=== PATIENT | female | born 1960 | race African-American/Black ===

== ENCOUNTER 2016-08-26 08:24 | Inpatient (IN) ==
[2016-08-26] MEDS ORDERED: PANTOPRAZOLE 40 MG VIAL IV STA (09:01)
[2016-08-26] MEDS ORDERED: SODIUM CHLORIDE 0.9% 1,000 ML IV STA (09:01)
[2016-08-26] MEDS ORDERED: ONDANSETRON 4 MG/2 ML VIAL IV STA (09:01)
[2016-08-26] MEDS ORDERED: METOCLOPRAMIDE 10 MG/2 ML VIAL IV STA (09:01)
--- NOTE | 2016-08-26 09:05 | Emergency Department Note ---
Arrival - Arrival Chief Complaint: Nausea/Vomiting/Diarrhea Stated Complaint: not feeling well/weakness/vomiting ED Nursing Triage Note: Nausea and vomiting x 1 week - pt states that she is having some generalized weakness Mode of Arrival: Wheelchair Limitations: No Limitations Source: Patient Time Seen by Provider: 08/26/16 09:00 - History of Present Illness HPI Narrative: This 56-year-old black female presents with one-week of persistent nausea, loose bowel movements, and intermittent vomiting. This has been associated with midepigastric tenderness, heartburn, belching, and water brash. The patient per the family has been told in the past that she may have an ulcer or gallbladder problems. The patient denies chills, fever, dysuria, urgency, frequency, hematuria, and vaginal discharge. Currently the patient is somewhat detached in the interview with much of the information from family members. The patient does have schizophrenia and did not take her Haldol today. She does not appear in any acute medical distress at this moment. Onset (ago): week(s) (Patient presents 1 week post onset of symptoms) Date of Last Menstrual Period: kenroy Allergies/Adverse Reactions: Allergies Allergy/AdvReac Type Severity Reaction Status Date / Time No Known Allergies Allergy Unverified 05/11/16 12:23 Home Medications: Home Medications Medication Instructions Recorded Confirmed Type Amlodipine Besylate 5 mg PO DAILY 05/11/16 05/11/16 History Haloperidol 5 mg PO BID 05/11/16 05/11/16 History Lisinopril 20 mg PO DAILY 05/11/16 05/11/16 History Metformin HCl 1,000 mg PO BID 05/11/16 05/11/16 History Ondansetron Tab [Zofran Tab] 4 mg PO Q6H #20 tablet 05/11/16 Rx Pravastatin Sodium 40 mg PO BEDTIME 05/11/16 05/11/16 History Promethazine Tab [Phenergan Tab] 25 mg PO Q6H PRN #20 tablet 05/11/16 Rx Meloxicam [Mobic] 15 mg PO DAILY #60 tablet 05/14/16 Rx Review of System - Review of System 12 point system: reviewed and no additional remarkable complaints except as stated - Review of System Constitutional: Present: as per HPI Gastrointestinal: Present: as per HPI Medical,Surgical,& Family Hx - Medical History Cardio: History of: Hypertension Psychological: History of: Schizophrenia Endocrine: History of: Diabetes Mellitus (IDDM), Diabetes Mellitus (NIDDM), Dyslipidemia - Social History Smoking Status: Unknown if ever smoked Frequency of Alcohol Use: None Type of Drug Use: None Exam Physical Examination: GENERAL: Well developed, well nourished black female in no acute distress. HEENT: Normocephalic. No trauma. Moist mucous membranes. EOMI. PERRLA. ENT NML NECK: Supple. No adenopathy. CARDIAC: Regular. No murmurs. Heart rate 82 CHEST: Clear to auscultation. No respiratory distress. O2 sat 98% ABDOMEN: Soft. Tender mid epigastrium. Active bowel sounds. EXTREMITIES: No trauma. Normal ROM. No pedal edema. SKIN: No diaphoresis. No rash. NEURO: Alert. Oriented 3 but glazed affect consistent with schizoaffective disease. Motor, sensory, vibratory intact. No focal deficits. Vital Signs: Vital Signs Temperature 97.2 F L 08/26/16 08:41 Pulse Rate 77 08/26/16 09:50 Respiratory Rate 16 08/26/16 09:50 Blood Pressure 128/71 08/26/16 09:50 O2 Sat by Pulse Oximetry 100 08/26/16 09:50 Course - Reevaluation(s) Reevaluation #1: Advised patient she would need hospitalization for acute renal dysfunction. - Consultations Consultation #1: Discussed with hospitalist service will admit for further evaluation treatment. Results - Labs CBC & BMP: 08/26/16 09:44 08/26/16 09:44 Labs: I have reviewed the lab and noted the abnormal renal function, hypokalemia, and hyperbilirubinemia. - Diagnostic Findings Procedure: Abdominal x-ray: image reviewed by me, report reviewed by me (No acute disease, 35 mm fibroid tumor) Disposition Clinical Impression: Acute renal failure, Hypokalemia, Hyperbilirubinemia Case discussed with: patient Disposition: Still a Patient Condition: Guarded Time of Disposition: 10:35
[2016-08-26] MEDS ORDERED: ONDANSETRON 4 MG/2 ML VIAL ONE (09:25)
[2016-08-26] MEDS ORDERED: PANTOPRAZOLE 40 MG VIAL IV ONE (09:25)
[2016-08-26] MEDS ORDERED: METOCLOPRAMIDE 10 MG/2 ML VIAL ONE (09:25)
--- NOTE | 2016-08-26 09:38 | XRay Report ---
Exam: XR abdomen 2V Date: 08/26/2016 9:01 AM Comparison: None Indication: Generalized abdominal pain Technique:[Supine abdomen] Findings: Nonobstructed bowel gas pattern. 35mm calcified uterine leiomyoma. Minimal degenerative changes. Impression: Nonobstructed bowel gas pattern. 35 mm calcified uterine leiomyoma. PROCEDURE INTERPRETED AT [facility] DEPARTMENT OF RADIOLOGY Final Report Signed by: Dr. Carly Reddy
[2016-08-26 09:55] LABS: Basophils % 0.3 % (0.0-0.8); Eosinophils # 0.2 10*3/uL (0.0-0.87); Eosinophils % 1.7 % (0.00-10.9); Hemoglobin 13.5 GM/DL (12.0-16.0); Immature Granulocytes % 0.4 %; Immature Granulocytes Absolute 0.04 #; Lymphocytes % 33.6 % (21.3-54.2); Mean Corpuscular HGB Conc 35.5 GM/DL (32-36); Mean Corpuscular Hemoglobin 27 PG (27-34); Mean Corpuscular Volume 76.6 FL (87-102); Mean Platelet Volume 10.3 FL (9.6-12.0); Monocytes # 0.7 10*3/uL (0.11-0.8); Monocytes % 7.4 % (1.7-12.7); Neutrophils # 5.1 10*3/uL (1.4-7.4); Neutrophils % 56.6 % (38.7-73.9); Red Blood Count 4.96 MC/CUMM (3.8-5.5); Red Cell Distribution Width 12.7 % (9.3-17.3)
[2016-08-26 09:57] LABS: Platelet Count 312 T/CUMM (130-400)
[2016-08-26 10:13] LABS: Albumin 3.9 G/DL (3.4-5.0); Bilirubin,Total 3.2 MG/DL (0.2-1.0); Calcium 9.4 MG/DL (8.5-10.1); Osmolality,Calculated 275.4 MOS/KG (273-304); Total Protein 7.5 G/DL (6.4-8.3)
[2016-08-26 10:49] LABS: Hypochromasia 1+
[2016-08-26 10:50] LABS: Platelet Estimate Adequate
[2016-08-26 11:07] LABS: Apearance,Urine CLOUDY (Clear); Bacteria,Urine Few /HPF (Few); Bilirubin,Urine Negative (Negative); Blood, Urine Negative (Negative); Glucose,Urine (UA) Negative (Negative); Ketones,Urine Negative (Negative); Mucus,Urine Occasional /LPF (Occasional); Nitrite,Urine Negative (Negative); Protein,Urine Negative; RBC,Urine 2 /HPF (0-4); Squamous Epithelial Cell,Urine Occasional /HPF (0-10); Urine Color Yellow (Yellow); Urine Specific Gravity 1.009 (1.001-1.035); Urine Urobilinogen < 2.0 EU/DL (0.2-1.0); WBC,Urine 7 /HPF (0-6)
--- NOTE | 2016-08-26 11:43 | Hospitalist History & Physical ---
Assessment and Plan (1) Acute kidney failure Status: Acute Assessment and plan: BUN 65 creatinine 4.1. This is a notable increase from last admission in May 2016 (creatinine 1.3). Gentle IV hydration. Consult nephrology. Current Visit: Yes (2) Hypertension Status: Acute Assessment and plan: Continue home medications. Current Visit: Yes (3) Diabetes mellitus Status: Acute Assessment and plan: Hold metformin. Accu-Cheks ACHS. Sliding scale insulin per protocol Current Visit: Yes (4) Hyponatremia Status: Acute Assessment and plan: Cautious replacement. Current Visit: Yes (5) Hypokalemia Status: Acute Assessment and plan: Potassium supplementation. Current Visit: Yes (6) Schizophrenia Status: Acute Assessment and plan: Patient takes Haldol at home. Continue home meds. Current Visit: Yes History of Present Illness Chief complaint: Generalized weakness, N/V/D History of present illness: Ms. Whitt is a 56 year old -[place] female with patient with a past medical history schizophrenia, hypertension, diabetes mellitus, gastroparesis, hyperlipidemia who presents to the emergency room with complaints of generalized weakness, diarrhea and intermittent vomiting 1 week. At the time of exam, the patient was in the room alone, alert and oriented 2. She was noticeably is detached and is a poor historian (per hospital records, the patient does take Haldol daily). Apparently her son was present previously, however he had left at the time of my exam. The patient did tell me that she was on disability due to "something to do with my brain" and that she currently lives with her son. She reports that she has been nauseous with vomiting and diarrhea for one week and had an apparent syncopal episode this morning while getting ready to bathe. She tells me that her son found her on the floor and brought her to the ER for further evaluation. On exam, the patient admits a headache and blurry vision but otherwise denies any pain. She further denies, chest pain, shortness of breath, current nausea or vomiting, melena, bright red blood per rectum, or edema. Her labs are remarkable for: Sodium 126, potassium 3.0, chloride of 76, BUN 65, creatinine 4.1, blood glucose 168. Abdominal x- ray reveals nonobstructive bowel gas pattern and a 35 mm calcified uterine leiomyoma. Patient notes that she has not taken any of her medications this morning because she "did not feel up to it". She is followed by Dr. Marc Echeverria in [place]. This case has been discussed with Dr. Pascual and the patient will be admitted to the hospital medicine service for further evaluation and treatment. Patient is a full code. Home medications have been reviewed and reconciled. Home Medications Medication Instructions Recorded Confirmed Type Amlodipine Besylate 5 mg PO DAILY 05/11/16 08/26/16 History Haloperidol 5 mg PO BID 05/11/16 08/26/16 History Lisinopril 20 mg PO DAILY 05/11/16 08/26/16 History Metformin HCl 1,000 mg PO BID 05/11/16 08/26/16 History Pravastatin Sodium 40 mg PO BEDTIME 05/11/16 08/26/16 History Allergies Allergy/AdvReac Type Severity Reaction Status Date / Time No Known Allergies Allergy Unverified 05/11/16 12:23 Medical,Surgical,& Family Hx - Medical History Cardio: History of: Hypertension Psychological: History of: Schizophrenia Endocrine: History of: Diabetes Mellitus (IDDM), Diabetes Mellitus (NIDDM), Dyslipidemia - Family History Family History: Reports;: Family Cancer, Family Heart Disease, Family Hypertension - Social History Smoking Status: Never smoker Frequency of Alcohol Use: None Type of Drug Use: None Marital Status: Single Lives With:: Children Functional capacity: independent ambulation - Constitutional Constitutional: Present: frequent falls, headache(s), weakness - EENT Eyes: Present: blurry vision. Absent: loss of vision Ears: Absent: decreased hearing, ear pain Nose, mouth and throat: Present: headache(s). Absent: nasal congestion, sinus pressure, sore throat, vertigo - Cardiovascular Cardiovascular: Absent: chest pain at rest, diaphoresis, dyspnea, dyspnea on exertion, edema, radiating jaw, neck or arm pain, palpitations - Respiratory Respiratory: Absent: cough, dyspnea, dyspnea on exertion, wheezing, pain on inspiration - Gastrointestinal Gastrointestinal: Present: change in bowel habits, diarrhea, loose stools, vomiting. Absent: abdominal pain, constipation, melena, nausea - Genitourinary Genitourinary: Absent: difficulty urinating, dysuria, hematuria, vaginal discharge - Musculoskeletal Musculoskeletal: Absent: back pain - Psychiatric Psychiatric: Present: confusion, other (hx of schizophrenia). Absent: anxiety, depression - Endocrine Endocrine: Absent: cold intolerance, fatigue, heat intolerance - Hematologic/Lymphatic Hematologic/Lymphatic: Absent: easy bleeding, easy bruising Exam - Constitutional Vitals: Period Temp Pulse Resp BP Sys/Lainez Pulse Ox Last 24 Hr 97.2 F-97.2 F 74-83 16-20 98-140/60-90 96-100 General appearance: no acute distress, over weight - Head Head exam: Present: normal inspection, normocephalic, atraumatic - Eye Eye exam: Present: EOMI Pupils: Present: RAE - ENT ENT exam: Present: normal exam, normal external ear exam - Neck Neck exam: Absent: lymphadenopathy, thyromegaly - Respiratory Respiratory exam: Present: clear to auscultation bilaterally. Absent: rales, rhonchi, wheezes - Cardiovascular Cardiovascular exam: Present: regular rate and rhythm. Absent: bradycardia, carotid bruit, gallop, rubs - GI/Abdominal GI/Abdominal exam: Present: normal bowel sounds, soft. Absent: mass, tenderness , rebound - Back Exam Back exam: Present: normal inspection. Absent: CVA tenderness (L), CVA tenderness (R) - Neurological Exam Neurological exam: Present: alert, CN II-XII intact, reflexes normal - Psychiatric Psychiatric exam: Present: normal affect, normal mood - Skin Skin exam: Present: normal color, warm, dry Results - Labs CBC & BMP: 08/26/16 09:44 08/26/16 09:44 Lab Results: I have reviewed the past 24 hour labs - Diagnostic Findings Procedure: Abdominal x-ray: image reviewed by me, report reviewed by me ( Nonobstructive bowel gas pattern)
[2016-08-26] MEDS ORDERED: DEXTROSE 50% 25 GM/50 ML VIAL IV PRN (12:44)
[2016-08-26] MEDS ORDERED: GLUCAGON 1 MG VIAL IM PRN (12:44)
[2016-08-26] MEDS: metroNIDAZOLE INJ 500 MG in PREMIX 1 EACH IV SCH ×2 (13:46→21:12)
[2016-08-26] MEDS: CIPROFLOXACIN INJ 400 MG in PREMIX 1 EACH IV SCH (15:35)
[2016-08-26] MEDS: INSULIN LISPRO 100 UNIT/ML SUBCUT SCH ×2 (17:08→21:15)
[2016-08-26] MEDS: HALOPERIDOL 5 MG TABLET PO SCH (21:10)
[2016-08-26] MEDS: PRAVASTATIN 40 MG TABLET PO SCH (21:10)
[2016-08-27] MEDS: metroNIDAZOLE INJ 500 MG in PREMIX 1 EACH IV SCH ×3 (06:33→22:13)
[2016-08-27] MEDS: HALOPERIDOL 5 MG TABLET PO SCH ×2 (09:28→22:07)
[2016-08-27] MEDS: INSULIN LISPRO 100 UNIT/ML SUBCUT SCH ×4 (09:28→22:06)
[2016-08-27] MEDS: CIPROFLOXACIN INJ 400 MG in PREMIX 1 EACH IV SCH (09:28)
--- NOTE | 2016-08-27 11:36 | Hospitalist Progress Note ---
Assessment and Plan - Time spent with patient Time spent with patient: Greater than 30 minutes (1) Acute kidney failure Status: Acute Assessment and plan: Obtain labs. Current Visit: Yes (2) Diabetes mellitus Status: Acute Assessment and plan: Continue current management. Current Visit: Yes (3) Hypertension Status: Acute Assessment and plan: Continue current management. Current Visit: Yes (4) Hypokalemia Status: Acute Assessment and plan: Reobtain labs. Current Visit: Yes (5) Hyponatremia Status: Acute Assessment and plan: Reobtain labs. Current Visit: Yes (6) Schizophrenia Status: Acute Assessment and plan: Continue current management. Current Visit: Yes Hospitalist: Subjective Interval history: No complaints or overnight events. Exam - Constitutional Vitals: Period Temp Pulse Resp BP Sys/Lainez Pulse Ox Last 24 Hr 97.4 F-99.4 F 73-88 14-19 120-163/63-78 95-100 General appearance: no acute distress - Head Head exam: Present: normocephalic, atraumatic - Eye Eye exam: Present: EOMI Pupils: Present: RAE - ENT ENT exam: Present: normal exam - Neck Neck exam: Present: normal inspection - Respiratory Respiratory exam: Present: clear to auscultation bilaterally. Absent: rhonchi, wheezes - Cardiovascular Cardiovascular exam: Present: regular rate and rhythm. Absent: gallop, rubs, systolic murmur - GI/Abdominal GI/Abdominal exam: Present: normal bowel sounds, soft. Absent: distended, firm , guarding, tenderness, rebound - Extremities Exam Extremities exam: Present: normal inspection. Absent: calf tenderness, edema Results - Labs CBC & BMP: 08/26/16 09:44 08/26/16 09:44 Lab Results: I have reviewed the past 24 hour labs
[2016-08-27 12:05] LABS: Calcium 9.6 MG/DL (8.5-10.1); Osmolality,Calculated 280.5 MOS/KG (273-304); Potassium 3.1 MMOL/L (3.5-5.1)
[2016-08-27] MEDS ORDERED: POTASSIUM CHLORIDE 20 MEQ PACK PO ONE (12:35)
[2016-08-27] MEDS: POTASSIUM CHLORIDE RIDER 10 MEQ in PREMIX 1 EACH IV SCH ×2 (13:57→15:16)
[2016-08-27] MEDS: PRAVASTATIN 40 MG TABLET PO SCH (22:07)
[2016-08-28] MEDS: CIPROFLOXACIN INJ 400 MG in PREMIX 1 EACH IV SCH (01:48)
[2016-08-28] MEDS: POTASSIUM CHLORIDE RIDER 10 MEQ in PREMIX 1 EACH IV SCH (01:49)
[2016-08-28 06:47] LABS: Basophils % 0.6 % (0.0-0.8); Eosinophils # 0.1 10*3/uL (0.0-0.87); Eosinophils % 1.5 % (0.00-10.9); Hematocrit 35.6 VOL% (35.7-47.0); Hemoglobin 12.1 GM/DL (12.0-16.0); Immature Granulocytes % 0.1 %; Immature Granulocytes Absolute 0.01 #; Lymphocytes % 56.5 % (21.3-54.2); Mean Corpuscular Hemoglobin 27 PG (27-34); Mean Corpuscular Volume 78.4 FL (87-102); Mean Platelet Volume 9.9 FL (9.6-12.0); Monocytes # 0.5 10*3/uL (0.11-0.8); Monocytes % 6.9 % (1.7-12.7); Neutrophils # 2.5 10*3/uL (1.4-7.4); Neutrophils % 34.4 % (38.7-73.9); Platelet Count 390 T/CUMM (130-400); Red Blood Count 4.54 MC/CUMM (3.8-5.5); Red Cell Distribution Width 12.9 % (9.3-17.3); White Blood Count 7.2 T/CUMM (4-12)
[2016-08-28] MEDS: metroNIDAZOLE INJ 500 MG in PREMIX 1 EACH IV SCH ×2 (06:57→13:29)
[2016-08-28 07:12] LABS: Eosinophils 2 % (0-10); Lymphocytes 62 % (20-55); Segmented Neutrophils 30 % (50-85); Total Cells Counted 100
[2016-08-28 07:13] LABS: Hypochromasia 1+; Microcytosis 1+; Ovalocytes Slight; Platelet Estimate Normal
[2016-08-28] MEDS: INSULIN LISPRO 100 UNIT/ML SUBCUT SCH ×2 (07:13→13:28)
[2016-08-28 07:23] LABS: Calcium 9.7 MG/DL (8.5-10.1); Osmolality,Calculated 274.1 MOS/KG (273-304); Potassium 3.4 MMOL/L (3.5-5.1)
[2016-08-28] MEDS ORDERED: POTASSIUM CHLORIDE 20 MEQ PACK PO ONE (09:00)
[2016-08-28] MEDS ORDERED: CIPROFLOXACIN INJ 400 MG in PREMIX 1 EACH IV SCH (09:00)
[2016-08-28] MEDS: HALOPERIDOL 5 MG TABLET PO SCH (10:25)
[2016-08-28 11:45] VITALS: BP 137/77
--- NOTE | 2016-08-28 12:52 | Discharge Summary ---
Hospital Course - Hospital Course Hospital Course: Ms. Whitt was admitted with nausea vomiting and diarrhea concerning for gastroenteritis. On admission her sodium level is 126, potassium 3.0 anion gap was 16 and creatinine was 4.1. Her electrolytes were replenished and by discharge had normalized. Her kidney function improved from 4.1-1.2 which is near baseline of 1.1. With regard to her gastroenteritis she was initiated on ciprofloxacin and metronidazole. She was found to have a urinary tract infection specifically due to E. coli. She will continue ciprofloxacin and metronidazole to cover both her gastroenteritis and UTI at discharge. Her nausea and vomiting had resolved during her hospital stay and her diet was advanced to regular diet which she tolerated. By discharge she had met maximum benefit of hospitalization. I spent 38 minutes coordinating this discharge. - Time spent with patient Time with patient DS: Greater than 30 minutes Diagnosis - Discharge Diagnosis (1) Acute kidney failure Status: Acute (2) Diabetes mellitus Status: Acute (3) Hypertension Status: Acute (4) Hypokalemia Status: Acute (5) Hyponatremia Status: Acute (6) Schizophrenia Status: Acute Discharge Plan - Discharge Data Disposition: Disch To Home/Self Care Condition at Discharge: Stable Discharge Diet: advance to your usual diet Activity: resume usual activities as tolerated - Discharge Medications New Ciprofloxacin HCl [Ciprofloxacin Tab] 500 mg PO BID #16 tablet metroNIDAZOLE TAB [Flagyl Cap/Tab] 500 mg PO TID #24 tablet Continue Haloperidol 5 mg PO BID Lisinopril 20 mg PO DAILY Pravastatin Sodium 40 mg PO BEDTIME Metformin HCl 1,000 mg PO BID Amlodipine Besylate 5 mg PO DAILY - Follow Up or Referral - Forms/Instructions Exam - Constitutional Vitals: Period Temp Pulse Resp BP Sys/Lainez Pulse Ox Last 24 Hr 97.8 F-99.5 F 76-81 16-18 127-154/73-82 91-99 General appearance: normal weight, no acute distress - Head Head exam: Present: normal inspection, normocephalic, atraumatic - Eye Eye exam: Present: EOMI Pupils: Present: RAE - ENT ENT exam: Present: normal exam - Neck Neck exam: Present: normal inspection - Respiratory Respiratory exam: Present: clear to auscultation bilaterally. Absent: accessory muscle use, prolonged expiratory phase, wheezes - Cardiovascular Cardiovascular exam: Present: regular rate and rhythm. Absent: bradycardia, irregular rhythm, systolic murmur - GI/Abdominal GI/Abdominal exam: Present: normal bowel sounds. Absent: ascites, distended, hypoactive bowel sounds, tenderness - Extremities Exam Extremities exam: Present: normal inspection Discharge Results Procedures and tests throughout hospitalization: Pending Orders 08/26/16 12:43 C. Diff Toxins A & B Routine Stool Culture Routine Stool for WBCs Routine Labs on day of discharge: Labs from last 24 hours 08/28/16 08/28/16 08/28/16 11:22 06:48 05:40 WBC RBC Hgb Hct MCV MCH MCHC RDW Plt Count MPV Neut % (Auto) Lymph % (Auto) [place] % (Auto) Eos % (Auto) Baso % (Auto) Neut # (Auto) Lymph # (Auto) [place] # (Auto) Eos # (Auto) Baso # (Auto) Total Counted Immature Gran % Nucleated RBC % Immature Gran # Segmented Neutrophils Lymphocytes Monocytes Eosinophils Nucleated RBCs # Platelet Estimate Hypochromasia Microcytosis Ovalocytes Morphology Comment Sodium 135 L Potassium 3.4 L Chloride 89 L Carbon Dioxide 38 H Anion Gap 11.4 BUN 19 H D Creatinine 1.20 H GFR Calculation 60 BUN/Creatinine Ratio 15.00 Glucose 145 H POC Glucose 246 H 172 H Calculated Osmolality 274.1 Calcium 9.7 08/28/16 08/27/16 08/27/16 05:40 20:22 16:13 WBC 7.2 RBC 4.54 Hgb 12.1 Hct 35.6 L MCV 78.4 L MCH 27 MCHC 34.0 RDW 12.9 Plt Count 390 D MPV 9.9 Neut % (Auto) 34.4 L Lymph % (Auto) 56.5 H [place] % (Auto) 6.9 Eos % (Auto) 1.5 Baso % (Auto) 0.6 Neut # (Auto) 2.5 Lymph # (Auto) 4.0 [place] # (Auto) 0.5 Eos # (Auto) 0.1 Baso # (Auto) 0.0 Total Counted 100 Immature Gran % 0.1 Nucleated RBC % 0.0 Immature Gran # 0.01 Segmented Neutrophils 30 L Lymphocytes 62 H Monocytes 6 Eosinophils 2 Nucleated RBCs # 0.00 Platelet Estimate Normal Hypochromasia 1+ Microcytosis 1+ Ovalocytes Slight Morphology Comment Sodium Potassium Chloride Carbon Dioxide Anion Gap BUN Creatinine GFR Calculation BUN/Creatinine Ratio Glucose POC Glucose 236 H 89 Calculated Osmolality Calcium DS: Provider Date of admission: 08/26/16 10:38 Primary care physician: . No PCP Attending physician on admission: Josefina Pascual MD Consults: 08/26/16 12:21 Consult to Dietitian [CONS] Routine Reason for Dietitian: Dietary Consult Discharging clinician: Josefina Pascual MD Expected date of discharge: 08/28/16
== END 2016-08-28 14:04 | disposition home or self-care (01) | DRG 683 ==
LOC: N.ED 08:24 → N.EDINP 10:38 → N.3E 12:19
PROVIDERS: ADMIT Internal Medicine; ATTEND Internal Medicine

== ENCOUNTER 2018-02-09 20:41 | Inpatient (IN) ==
[2018-02-09] MEDS ORDERED: MORPHINE 4 MG/1 ML VIAL IV STA (21:22)
[2018-02-09] MEDS ORDERED: SODIUM CHLORIDE 0.9% 1,000 ML IV STA ×2 (21:22→23:06)
[2018-02-09] MEDS ORDERED: ONDANSETRON 4 MG/2 ML VIAL IM STA (21:22)
[2018-02-09 21:48] LABS: Basophils % 0.1 % (0.0-0.8); Hematocrit 40.1 VOL% (35.7-47.0); Hemoglobin 12.8 GM/DL (12.0-16.0); Immature Granulocytes % 0.5 %; Immature Granulocytes Absolute 0.08 #; Mean Corpuscular HGB Conc 31.9 GM/DL (32-36); Mean Corpuscular Hemoglobin 26 PG (27-34); Mean Corpuscular Volume 81.7 FL (87-102); Monocytes # 0.2 10*3/uL (0.11-0.8); Monocytes % 1.3 % (1.7-12.7); Neutrophils # 13.5 10*3/uL (1.4-7.4); Neutrophils % 91.1 % (38.7-73.9); Platelet Count 437 T/CUMM (130-400); Red Blood Count 4.91 MC/CUMM (3.8-5.5); Red Cell Distribution Width 14.5 % (9.3-17.3); White Blood Count 14.8 T/CUMM (4-12)
[2018-02-09 22:28] LABS: Alanine Aminotransferase 30 U/L (13-56); Albumin 4.4 G/DL (3.4-5.0); Alkaline Phosphatase 155 U/L (45-117); Aspartate Amino Transferase 31 U/L (0-37); Blood Urea Nitrogen 29 MG/DL (7-18); Calcium 10.2 MG/DL (8.5-10.1); Glucose 428 MG/DL (74-106); Osmolality,Calculated 293.1 MOS/KG (273-304); Potassium 4.6 MMOL/L (3.5-5.1); Sodium 135 MMOL/L (136-145); Total Protein 9.9 G/DL (6.4-8.3)
[2018-02-09 22:42] LABS: Apearance,Urine Slightly Hazy (Clear); Bacteria,Urine Many /HPF (Few); Bilirubin,Urine Negative (Negative); Blood, Urine Moderate mg/dL (Negative); Glucose,Urine (UA) >=500 mg/dL (Negative); Ketones,Urine 20 mg/dL (Negative); Mucus,Urine Occasional /LPF (Occasional); Nitrite,Urine Negative (Negative); Protein,Urine 100 MG/DL; Squamous Epithelial Cell,Urine Occasional /HPF (0-10); Urine Color Yellow (Yellow); Urine Specific Gravity 1.022 (1.001-1.035); Urine Urobilinogen < 2.0 EU/DL (0.2-1.0); WBC,Urine 7 /HPF (0-6)
[2018-02-09 22:44] LABS: Lactic Acid 4.6 MMOL/L (0.4-2.0)
[2018-02-09] MEDS ORDERED: INSULIN REGULAR DRIP 100 ML IV PRN (23:06)
[2018-02-10] MEDS ORDERED: MAGNESIUM SULF RIDER 2 GM in PREMIX 1 EACH IV PRN (00:46)
[2018-02-10] MEDS ORDERED: INSULIN REGULAR DRIP 100 ML IV SCH (00:46)
[2018-02-10] MEDS ORDERED: SODIUM PHOSPHATE INJ 20.2 MMOL in SODIUM CHLORIDE 0.9% 250 ML IV PRN (00:46)
[2018-02-10] MEDS ORDERED: DEXTROSE 50% 25 GM/50 ML SYRINGE IV PRN ×2 (00:46)
[2018-02-10] MEDS ORDERED: SODIUM BICARB INJ 100 MEQ in STERILE WATER INJ 400 ML IV PRN (00:46)
[2018-02-10] MEDS ORDERED: SODIUM CHLORIDE 0.9% 1,000 ML IV ONE (00:46)
[2018-02-10] MEDS ORDERED: POTASSIUM CHLORIDE RIDER 10 MEQ in PREMIX 1 EACH IV PRN (00:46)
[2018-02-10] MEDS ORDERED: MAGNESIUM SULF RIDER 4 GM in PREMIX 1 EACH IV PRN (00:46)
[2018-02-10] MEDS ORDERED: ONDANSETRON 4 MG/2 ML VIAL IV PRN (01:08)
[2018-02-10 01:36] LABS: Osmolality,Calculated 290.2 MOS/KG (273-304); Potassium 5.3 MMOL/L (3.5-5.1)
[2018-02-10] MEDS: cefTRIAXone 1,000 MG in SYRINGE 1 EACH IV SCH (01:37)
[2018-02-10] MEDS: SODIUM CHLORIDE 0.9% 1,000 ML IV SCH ×2 (02:00→04:03)
[2018-02-10 02:44] LABS: Basophils % 0.2 % (0.0-0.8); Hematocrit 35.2 VOL% (35.7-47.0); Hemoglobin 11.2 GM/DL (12.0-16.0); Immature Granulocytes % 0.4 %; Immature Granulocytes Absolute 0.05 #; Lymphocytes # 1.1 10*3/uL (1.4-4.0); Mean Corpuscular HGB Conc 31.8 GM/DL (32-36); Mean Corpuscular Hemoglobin 26 PG (27-34); Mean Corpuscular Volume 81.3 FL (87-102); Mean Platelet Volume 9.9 FL (9.6-12.0); Monocytes # 0.3 10*3/uL (0.11-0.8); Monocytes % 2.1 % (1.7-12.7); Neutrophils # 11.7 10*3/uL (1.4-7.4); Neutrophils % 89.3 % (38.7-73.9); Platelet Count 386 T/CUMM (130-400); Red Blood Count 4.33 MC/CUMM (3.8-5.5); Red Cell Distribution Width 14.4 % (9.3-17.3); White Blood Count 13.1 T/CUMM (4-12)
[2018-02-10 03:16] LABS: Calcium 9.2 MG/DL (8.5-10.1); Osmolality,Calculated 292.5 MOS/KG (273-304); Potassium 3.9 MMOL/L (3.5-5.1)
[2018-02-10 03:21] LABS: Anisocytosis 1+; Platelet Estimate Adequate
[2018-02-10 03:33] LABS: Apearance,Urine Slightly Hazy (Clear); Bacteria,Urine Many /HPF (Few); Bilirubin,Urine Negative (Negative); Blood, Urine Moderate mg/dL (Negative); Glucose,Urine (UA) >=500 mg/dL (Negative); Ketones,Urine 20 mg/dL (Negative); Mucus,Urine Occasional /LPF (Occasional); Nitrite,Urine Negative (Negative); Protein,Urine 100 MG/DL; RBC,Urine 7 /HPF (0-4); Squamous Epithelial Cell,Urine Occasional /HPF (0-10); Urine Color Yellow (Yellow); Urine Specific Gravity 1.021 (1.001-1.035); Urine Urobilinogen < 2.0 EU/DL (0.2-1.0); WBC,Urine 3 /HPF (0-6)
[2018-02-10] MEDS ORDERED: SODIUM CHLORIDE 0.9% 1,000 ML IV SCH (05:12)
[2018-02-10] MEDS ORDERED: DEXTROSE 5% NACL 0.9% 1,000 ML IV SCH ×2 (05:30→06:30)
[2018-02-10 08:45] LABS: Calcium 8.3 MG/DL (8.5-10.1); Potassium 3.9 MMOL/L (3.5-5.1)
[2018-02-10] MEDS: amLODIPine 5 MG TABLET PO SCH (09:26)
[2018-02-10] MEDS: ENOXAPARIN 40 MG/0.4 ML SYRINGE SUBCUT SCH (09:26)
[2018-02-10] MEDS ORDERED: DEXTROSE 50% 25 GM/50 ML VIAL IV PRN (10:41)
[2018-02-10] MEDS ORDERED: GLUCAGON 1 MG VIAL IM PRN (10:41)
[2018-02-10] MEDS: INSULIN LISPRO 100 UNIT/ML SUBCUT SCH ×3 (12:52→22:49)
[2018-02-10] MEDS: SODIUM CHLORIDE 0.45% 1,000 ML IV SCH ×2 (12:53→21:09)
[2018-02-10] MEDS ORDERED: glyBURIDE 2.5 MG TABLET PO ONE (16:33)
[2018-02-10 19:44] LABS: Lactic Acid 2.8 MMOL/L (0.4-2.0)
[2018-02-10] MEDS ORDERED: PRAVASTATIN 40 MG TABLET PO SCH (21:00)
[2018-02-10] MEDS: HALOPERIDOL 5 MG TABLET PO SCH (22:48)
[2018-02-11] MEDS: cefTRIAXone 1,000 MG in SYRINGE 1 EACH IV SCH (00:40)
[2018-02-11] MEDS: SODIUM CHLORIDE 0.9% 1,000 ML IV SCH (03:03)
[2018-02-11] MEDS: SODIUM CHLORIDE 0.45% 1,000 ML IV SCH (03:52)
[2018-02-11 07:42] VITALS: BP 158/87
[2018-02-11] MEDS ORDERED: glyBURIDE 2.5 MG TABLET PO SCH (08:00)
[2018-02-11] MEDS: INSULIN LISPRO 100 UNIT/ML SUBCUT SCH ×2 (08:18→11:34)
[2018-02-11 08:44] LABS: Bilirubin,Total 1.1 MG/DL (0.2-1.0); Calcium 8.1 MG/DL (8.5-10.1); Osmolality,Calculated 282.3 MOS/KG (273-304); Potassium 3.7 MMOL/L (3.5-5.1); Total Protein 7.4 G/DL (6.4-8.3)
[2018-02-11] MEDS: amLODIPine 5 MG TABLET PO SCH (08:54)
[2018-02-11] MEDS: HALOPERIDOL 5 MG TABLET PO SCH (08:54)
[2018-02-11] MEDS: ENOXAPARIN 40 MG/0.4 ML SYRINGE SUBCUT SCH (08:55)
== END 2018-02-11 12:21 | disposition home or self-care (01) | DRG 683 ==
LOC: N.ED 20:41 → SUATTDRO 23:53 → N.EDINP 23:53 → N.ICU 02-10 00:39 → N.5E 02-11 01:04
PROVIDERS: ADMIT Family Medicine; ATTEND Internal Medicine

== ENCOUNTER 2019-01-06 23:41 | Inpatient (IN) ==
[2019-01-06] MEDS ORDERED: hydrALAZINE 20 MG/1 ML VIAL IV STA (23:58)
[2019-01-06] MEDS ORDERED: SODIUM CHLORIDE 0.9% 500 ML IV STA (23:58)
[2019-01-06] MEDS ORDERED: ONDANSETRON 4 MG/2 ML VIAL IV STA (23:58)
[2019-01-06] MEDS ORDERED: PANTOPRAZOLE 40 MG VIAL IV STA (23:58)
[2019-01-07 00:57] LABS: Apearance,Urine Slightly Hazy (Clear); Bacteria,Urine Many /HPF (Few); Bilirubin,Urine Negative (Negative); Blood, Urine Moderate mg/dL (Negative); Glucose,Urine (UA) >=500 mg/dL (Negative); Ketones,Urine 20 mg/dL (Negative); Mucus,Urine Occasional /LPF (Occasional); Nitrite,Urine Negative (Negative); Protein,Urine 100 MG/DL; RBC,Urine 5 /HPF (0-4); Squamous Epithelial Cell,Urine Occasional /HPF (0-10); Urine Color Red (Yellow); Urine Specific Gravity 1.026 (1.001-1.035); Urine Urobilinogen < 2.0 EU/DL (0.2-1.0); WBC,Urine 2 /HPF (0-6)
[2019-01-07 00:58] LABS: Basophils % 0.2 % (0.0-0.8); Hematocrit 41.1 VOL% (35.7-47.0); Hemoglobin 13.1 GM/DL (12.0-16.0); Immature Granulocytes % 0.4 %; Immature Granulocytes Absolute 0.05 #; Lymphocytes # 1.3 10*3/uL (1.4-4.0); Lymphocytes % 9.4 % (21.3-54.2); Mean Corpuscular HGB Conc 31.9 GM/DL (32-36); Mean Corpuscular Volume 81.1 FL (87-102); Mean Platelet Volume 10.1 FL (9.6-12.0); Platelet Count 476 T/CUMM (130-400); Red Blood Count 5.07 MC/CUMM (3.8-5.5); Red Cell Distribution Width 13.9 % (9.3-17.3); White Blood Count 13.5 T/CUMM (4-12)
[2019-01-07 01:14] LABS: Alanine Aminotransferase 20 U/L (13-56); Albumin 4.5 G/DL (3.4-5.0); Alkaline Phosphatase 147 U/L (45-117); Amylase 48 U/L (25-115); Aspartate Amino Transferase 8 U/L (0-37); Blood Urea Nitrogen 20 MG/DL (7-18); Calcium 10.3 MG/DL (8.5-10.1); Estimated Glom Filtration Rate 38 ML/MIN; Osmolality,Calculated 304.8 MOS/KG (273-304); Total Protein 9.6 G/DL (6.4-8.3)
[2019-01-07 01:16] LABS: Glucose 619 MG/DL (74-106)
[2019-01-07] MEDS ORDERED: METOCLOPRAMIDE 10 MG/2 ML VIAL IV STA (01:17)
[2019-01-07] MEDS ORDERED: INSULIN REGULAR 100 UNIT/ML IV STA (01:17)
[2019-01-07] MEDS ORDERED: SODIUM CHLORIDE 0.9% 2,450 ML IV ONE (01:19)
[2019-01-07] MEDS ORDERED: PIPERACILLIN/TAZOBACTAM 3,375 MG VIAL IV ONE (01:23)
[2019-01-07] MEDS ORDERED: hydrALAZINE 20 MG/1 ML VIAL IV STA ×2 (01:33→01:39)
[2019-01-07] MEDS: PIPERACILLIN/TAZOBACTAM 3,375 MG in SODIUM CHLORIDE 0.9% 100 ML IV SCH ×3 (01:37→17:43)
[2019-01-07] MEDS ORDERED: PROMETHAZINE 25 MG/1 ML VIAL ONE (01:47)
[2019-01-07] MEDS ORDERED: PROMETHAZINE 25 MG/1 ML VIAL IM STA (01:48)
[2019-01-07] MEDS ORDERED: INSULIN REGULAR 100 UNIT/ML IV ONE (02:07)
[2019-01-07] MEDS ORDERED: PROMETHAZINE 25 MG/1 ML VIAL IM PRN (02:42)
[2019-01-07] MEDS ORDERED: GLUCAGON 1 MG VIAL IM PRN (02:48)
[2019-01-07] MEDS ORDERED: DEXTROSE 50% 25 GM/50 ML VIAL IV PRN (02:48)
[2019-01-07] MEDS: INSULIN REGULAR 100 UNIT/ML SUBCUT SCH ×5 (04:05→21:23)
[2019-01-07] MEDS: LABETALOL 20 MG/4 ML SYRINGE IV PRN (04:45)
[2019-01-07] MEDS ORDERED: PROMETHAZINE INJ 25 MG, diphenhydrAMINE INJ 50 MG in SODIUM CHLORIDE 0.9% 1,000 ML IV SCH (05:00)
[2019-01-07 05:52] LABS: Basophils % 0.2 % (0.0-0.8); Hematocrit 36.8 VOL% (35.7-47.0); Hemoglobin 11.7 GM/DL (12.0-16.0); Immature Granulocytes % 0.5 %; Immature Granulocytes Absolute 0.07 #; Lymphocytes # 0.8 10*3/uL (1.4-4.0); Lymphocytes % 5.7 % (21.3-54.2); Mean Corpuscular HGB Conc 31.8 GM/DL (32-36); Mean Corpuscular Volume 81.4 FL (87-102); Mean Platelet Volume 9.7 FL (9.6-12.0); Monocytes % 2.6 % (1.7-12.7); Platelet Count 409 T/CUMM (130-400); Red Blood Count 4.52 MC/CUMM (3.8-5.5); Red Cell Distribution Width 14.2 % (9.3-17.3); White Blood Count 13.2 T/CUMM (4-12)
[2019-01-07 06:19] LABS: Albumin 3.9 G/DL (3.4-5.0); Bilirubin,Total 1.7 MG/DL (0.2-1.0); Calcium 9.6 MG/DL (8.5-10.1); Osmolality,Calculated 299.3 MOS/KG (273-304); Total Protein 8.8 G/DL (6.4-8.3)
[2019-01-07 06:21] LABS: Lymphocytes 4 % (20-55); Platelet Estimate Increased; Segmented Neutrophils 95 % (50-85); Total Cells Counted 100
[2019-01-07] MEDS ORDERED: INSULIN REGULAR 100 UNIT/ML SUBCUT ONE (06:42)
[2019-01-07 06:53] LABS: VBG Base Excess -0.7 MEQ/L (0-4); VBG HCO3 23.6 MEQ/L (24-28); VBG Oxygen Saturation 84.7 %; VBG PCO2 39.3 MMHG (41-51); VBG PH 7.394; VBG PO2 50.2 MMHG (17-40)
[2019-01-07] MEDS: ONDANSETRON 4 MG/2 ML VIAL IV PRN (08:32)
[2019-01-07] MEDS: PANTOPRAZOLE 40 MG VIAL IV SCH ×2 (08:58→20:39)
[2019-01-07] MEDS: amLODIPine 5 MG TABLET PO SCH (08:59)
[2019-01-07] MEDS: LISINOPRIL 20 MG TABLET PO SCH (08:59)
[2019-01-07] MEDS: INSULIN GLARGINE 100 UNIT/ML SUBCUT SCH (09:00)
[2019-01-07] MEDS: ENOXAPARIN 40 MG/0.4 ML SYRINGE SUBCUT SCH (09:00)
[2019-01-07] MEDS ORDERED: PIPERACILLIN/TAZOBACTAM 3,375 MG in SODIUM CHLORIDE 0.9% 100 ML IV SCH (09:30)
[2019-01-07] MEDS: SODIUM CHLORIDE 0.9% 1,000 ML IV SCH ×2 (10:26→11:48)
[2019-01-08] MEDS: PIPERACILLIN/TAZOBACTAM 3,375 MG in SODIUM CHLORIDE 0.9% 100 ML IV SCH ×3 (02:25→17:07)
[2019-01-08] MEDS: SODIUM CHLORIDE 0.9% 1,000 ML IV SCH ×3 (04:29→12:46)
[2019-01-08 04:43] LABS: Basophils % 0.2 % (0.0-0.8); Eosinophils % 0.1 % (0.00-10.9); Hematocrit 38.2 VOL% (35.7-47.0); Hemoglobin 12.3 GM/DL (12.0-16.0); Immature Granulocytes % 0.4 %; Immature Granulocytes Absolute 0.05 #; Lymphocytes # 2.7 10*3/uL (1.4-4.0); Lymphocytes % 23.8 % (21.3-54.2); Mean Corpuscular HGB Conc 32.2 GM/DL (32-36); Monocytes % 5.6 % (1.7-12.7); Neutrophils % 69.9 % (38.7-73.9); Platelet Count 400 T/CUMM (130-400); Red Blood Count 4.66 MC/CUMM (3.8-5.5); Red Cell Distribution Width 14.4 % (9.3-17.3); White Blood Count 11.5 T/CUMM (4-12)
[2019-01-08] MEDS: LABETALOL 20 MG/4 ML SYRINGE IV PRN ×2 (04:43→22:43)
[2019-01-08 05:08] LABS: Calcium 9.6 MG/DL (8.5-10.1); Osmolality,Calculated 287.3 MOS/KG (273-304)
[2019-01-08] MEDS: INSULIN GLARGINE 100 UNIT/ML SUBCUT SCH (08:49)
[2019-01-08] MEDS: INSULIN REGULAR 100 UNIT/ML SUBCUT SCH ×4 (08:49→21:50)
[2019-01-08] MEDS: ENOXAPARIN 40 MG/0.4 ML SYRINGE SUBCUT SCH (08:49)
[2019-01-08] MEDS: amLODIPine 5 MG TABLET PO SCH (08:50)
[2019-01-08] MEDS: LISINOPRIL 20 MG TABLET PO SCH (08:50)
[2019-01-08] MEDS: PANTOPRAZOLE 40 MG VIAL IV SCH ×2 (08:50→21:50)
[2019-01-08] MEDS: ONDANSETRON 4 MG/2 ML VIAL IV PRN (12:56)
[2019-01-08] MEDS: POTASSIUM CHLORIDE 20 MEQ TABLET PO PRN (22:43)
[2019-01-09] MEDS: POTASSIUM CHLORIDE RIDER 10 MEQ in PREMIX 1 EACH IV PRN ×3 (00:16→06:27)
[2019-01-09] MEDS: SODIUM CHLORIDE 0.9% 1,000 ML IV SCH ×4 (01:24→20:30)
[2019-01-09] MEDS: PIPERACILLIN/TAZOBACTAM 3,375 MG in SODIUM CHLORIDE 0.9% 100 ML IV SCH ×3 (02:24→18:56)
[2019-01-09 05:49] LABS: Basophils % 0.4 % (0.0-0.8); Eosinophils % 0.2 % (0.00-10.9); Hematocrit 40.7 VOL% (35.7-47.0); Hemoglobin 13.2 GM/DL (12.0-16.0); Immature Granulocytes % 0.3 %; Immature Granulocytes Absolute 0.03 #; Lymphocytes # 2.8 10*3/uL (1.4-4.0); Lymphocytes % 30.2 % (21.3-54.2); Mean Corpuscular HGB Conc 32.4 GM/DL (32-36); Mean Corpuscular Volume 80.8 FL (87-102); Mean Platelet Volume 9.2 FL (9.6-12.0); Monocytes % 4.9 % (1.7-12.7); Platelet Count 397 T/CUMM (130-400); Red Blood Count 5.04 MC/CUMM (3.8-5.5); White Blood Count 9.3 T/CUMM (4-12)
[2019-01-09 06:05] LABS: Calcium 9.2 MG/DL (8.5-10.1); Osmolality,Calculated 275.1 MOS/KG (273-304)
[2019-01-09] MEDS ORDERED: LACTATED RINGERS 1,000 ML IV SCH (08:00)
[2019-01-09] MEDS: PANTOPRAZOLE 40 MG VIAL IV SCH ×2 (08:12→20:28)
[2019-01-09] MEDS: INSULIN GLARGINE 100 UNIT/ML SUBCUT SCH (08:12)
[2019-01-09] MEDS: INSULIN REGULAR 100 UNIT/ML SUBCUT SCH ×4 (08:12→20:28)
[2019-01-09] MEDS: LISINOPRIL 20 MG TABLET PO SCH (08:12)
[2019-01-09] MEDS: amLODIPine 5 MG TABLET PO SCH (08:12)
[2019-01-09] MEDS ORDERED: MAGNESIUM SULF RIDER 4 GM in PREMIX 1 EACH IV PRN (09:20)
[2019-01-09] MEDS ORDERED: MAGNESIUM SULF RIDER 2 GM in PREMIX 1 EACH IV PRN (09:20)
[2019-01-09] MEDS ORDERED: LIDOCAINE 100 MG/5 ML SYRINGE ONE (10:00)
[2019-01-09] MEDS ORDERED: PROPOFOL 200 MG/20 ML VIAL IV ONE (10:00)
[2019-01-09] MEDS ORDERED: ONDANSETRON 4 MG/2 ML VIAL ONE (10:32)
[2019-01-09] MEDS: ONDANSETRON 4 MG/2 ML VIAL IV PRN (10:35)
[2019-01-09] MEDS: POTASSIUM CHLORIDE 20 MEQ TABLET PO PRN (16:48)
[2019-01-10] MEDS: PIPERACILLIN/TAZOBACTAM 3,375 MG in SODIUM CHLORIDE 0.9% 100 ML IV SCH ×2 (00:57→09:25)
[2019-01-10] MEDS: POTASSIUM CHLORIDE 20 MEQ TABLET PO PRN ×2 (04:16→07:08)
[2019-01-10] MEDS: SODIUM CHLORIDE 0.9% 1,000 ML IV SCH ×2 (06:08→11:25)
[2019-01-10] MEDS: INSULIN REGULAR 100 UNIT/ML SUBCUT SCH ×2 (08:39→12:00)
[2019-01-10] MEDS: LISINOPRIL 20 MG TABLET PO SCH (09:20)
[2019-01-10] MEDS: INSULIN GLARGINE 100 UNIT/ML SUBCUT SCH (09:20)
[2019-01-10] MEDS: PANTOPRAZOLE 40 MG VIAL IV SCH (09:20)
[2019-01-10] MEDS: amLODIPine 5 MG TABLET PO SCH (09:20)
[2019-01-10 17:26] VITALS: BP 134/72
== END 2019-01-10 15:50 | disposition home or self-care (01) | DRG 872 ==
LOC: N.ED 23:41 → N.EDINP 01-07 02:42 → N.5E 01-07 03:27
PROVIDERS: ADMIT Internal Medicine; ATTEND Internal Medicine

== ENCOUNTER 2020-12-18 20:51 | Inpatient (IN) ==
[2020-12-18] MEDS ORDERED: PROCHLORPERAZINE 10 MG/2 ML VIAL IV PRN (21:26)
[2020-12-18 21:48] LABS: ABG Base Excess 4.6 MMOL/L (-2.5-2.5); ABG HCO3 28.6 MMOL/L (20-26); ABG Oxygen Saturation 98.5 % (95-100); ABG PH 7.507 (7.35-7.45); ABG PO2 91.8 MM HG (80-95); ABG TCO2 25.5 MMOL/L (23-27)
[2020-12-18 21:51] LABS: Basophils % 0.1 % (0.0-0.8); Hematocrit 29.9 VOL% (35.7-47.0); Hemoglobin 9.3 GM/DL (12.0-16.0); Immature Granulocytes % 0.4 %; Immature Granulocytes Absolute 0.03 #; Lymphocytes % 12.8 % (21.3-54.2); Mean Corpuscular HGB Conc 31.1 GM/DL (32-36); Mean Corpuscular Volume 80.6 FL (87-102); Mean Platelet Volume 9.2 FL (9.6-12.0); Monocytes % 3.7 % (1.7-12.7); Platelet Count 358 T/CUMM (130-400); Red Blood Count 3.71 MC/CUMM (3.8-5.5); Red Cell Distribution Width 15.5 % (9.3-17.3); White Blood Count 7.6 T/CUMM (4-12)
[2020-12-18 22:10] LABS: Albumin 3.1 G/DL (3.4-5.0); Bilirubin,Total 0.7 MG/DL (0.20-1.00); Calcium 9.1 MG/DL (8.5-10.1); Osmolality,Calculated 286.4 MOS/KG (273-304); Potassium 3.7 MMOL/L (3.5-5.1); Total Protein 8.7 G/DL (6.4-8.2)
[2020-12-18] MEDS ORDERED: LABETALOL 20 MG/4 ML SYRINGE IV STA (22:22)
[2020-12-19] MEDS ORDERED: hydrALAZINE 20 MG/1 ML VIAL IV STA (00:16)
[2020-12-19] MEDS ORDERED: GLUCAGON 1 MG VIAL IM PRN (00:21)
[2020-12-19] MEDS ORDERED: ONDANSETRON 4 MG/2 ML VIAL IV STA (00:21)
[2020-12-19] MEDS ORDERED: hydrALAZINE 20 MG/1 ML VIAL IV PRN (00:21)
[2020-12-19] MEDS ORDERED: ACETAMINOPHEN 325 MG TABLET PO PRN (00:21)
[2020-12-19] MEDS ORDERED: DEXTROSE 50% 25 GM/50 ML VIAL IV PRN (00:21)
[2020-12-19] MEDS ORDERED: DOCUSATE SODIUM 100 MG CAPSULE PO PRN (00:21)
[2020-12-19] MEDS: SODIUM CHLORIDE 0.9% 1,000 ML IV SCH ×2 (01:02→14:25)
[2020-12-19] MEDS: PROMETHAZINE 25 MG/1 ML VIAL IM PRN ×2 (03:18→20:30)
[2020-12-19 05:18] LABS: Basophils % 0.2 % (0.0-0.8); Hemoglobin 9.1 GM/DL (12.0-16.0); Immature Granulocytes % 0.2 %; Immature Granulocytes Absolute 0.02 #; Lymphocytes # 2.3 10*3/uL (1.4-4.0); Lymphocytes % 26.7 % (21.3-54.2); Mean Corpuscular HGB Conc 31.4 GM/DL (32-36); Mean Corpuscular Volume 79.9 FL (87-102); Mean Platelet Volume 9.9 FL (9.6-12.0); Monocytes % 7.5 % (1.7-12.7); Neutrophils % 65.4 % (38.7-73.9); Platelet Count 416 T/CUMM (130-400); Red Blood Count 3.63 MC/CUMM (3.8-5.5); Red Cell Distribution Width 15.7 % (9.3-17.3); White Blood Count 8.7 T/CUMM (4-12)
[2020-12-19 05:32] LABS: Albumin 3.1 G/DL (3.4-5.0); Bilirubin,Total 1.5 MG/DL (0.20-1.00); Calcium 9.8 MG/DL (8.5-10.1); Osmolality,Calculated 283.7 MOS/KG (273-304); Potassium 3.6 MMOL/L (3.5-5.1); Total Protein 8.9 G/DL (6.4-8.2)
[2020-12-19 05:33] LABS: % Iron Saturation 17.7 % (18-50); Ferritin 309.4 ng/mL (8-252)
[2020-12-19] MEDS: ONDANSETRON 4 MG/2 ML VIAL IV PRN (08:33)
[2020-12-19] MEDS: PANTOPRAZOLE 40 MG VIAL IV SCH (08:33)
[2020-12-19] MEDS: INSULIN LISPRO 100 UNIT/ML SUBCUT SCH ×4 (08:34→20:56)
[2020-12-19] MEDS ORDERED: INFLUENZA VIRUS VACCINE 0.5 ML SYRINGE IM ONE (09:00)
[2020-12-19] MEDS: ENOXAPARIN 40 MG/0.4 ML SYRINGE SUBCUT SCH (11:43)
[2020-12-20] MEDS: ONDANSETRON 4 MG/2 ML VIAL IV PRN ×3 (01:29→19:38)
[2020-12-20] MEDS: SODIUM CHLORIDE 0.9% 1,000 ML IV SCH ×6 (01:29→21:48)
[2020-12-20] MEDS: PROMETHAZINE 25 MG/1 ML VIAL IM PRN ×2 (04:52→17:54)
[2020-12-20 04:59] LABS: Basophils % 0.3 % (0.0-0.8); Eosinophils % 0.1 % (0.00-10.9); Hematocrit 34.1 VOL% (35.7-47.0); Hemoglobin 10.4 GM/DL (12.0-16.0); Immature Granulocytes % 0.3 %; Immature Granulocytes Absolute 0.02 #; Lymphocytes % 28.8 % (21.3-54.2); Mean Corpuscular HGB Conc 30.5 GM/DL (32-36); Mean Corpuscular Volume 81.8 FL (87-102); Mean Platelet Volume 9.3 FL (9.6-12.0); Monocytes % 7.5 % (1.7-12.7); Platelet Count 380 T/CUMM (130-400); Red Blood Count 4.17 MC/CUMM (3.8-5.5); Red Cell Distribution Width 16.1 % (9.3-17.3)
[2020-12-20 05:20] LABS: Calcium 9.4 MG/DL (8.5-10.1); Osmolality,Calculated 280.7 MOS/KG (273-304); Potassium 3.6 MMOL/L (3.5-5.1)
[2020-12-20 05:22] LABS: Bilirubin,Total 1.4 MG/DL (0.20-1.00); Calcium 9.6 MG/DL (8.5-10.1); Potassium 3.5 MMOL/L (3.5-5.1); Total Protein 8.6 G/DL (6.4-8.2)
[2020-12-20] MEDS: ENOXAPARIN 40 MG/0.4 ML SYRINGE SUBCUT SCH (08:55)
[2020-12-20] MEDS: INSULIN LISPRO 100 UNIT/ML SUBCUT SCH ×4 (08:55→21:00)
[2020-12-20] MEDS: PANTOPRAZOLE 40 MG VIAL IV SCH ×2 (08:55→20:58)
[2020-12-20] MEDS ORDERED: FAMOTIDINE 20 MG/2 ML VIAL IV ONE (09:11)
[2020-12-20] MEDS ORDERED: LIDOCAINE 2% 5 ML VIAL ONE (09:12)
[2020-12-20] MEDS ORDERED: propofoL 200 MG/20 ML VIAL IV ONE (09:12)
[2020-12-20] MEDS ORDERED: VANCOMYCIN INJ 1,250 MG in SODIUM CHLORIDE 0.9% 250 ML IV SCH (12:00)
[2020-12-20] MEDS: VANCOMYCIN INJ 1,250 MG in SODIUM CHLORIDE 0.9% 250 ML IV SCH (12:36)
[2020-12-20] MEDS: BENZTROPINE 1 MG TABLET PO SCH (20:58)
[2020-12-20] MEDS: HALOPERIDOL 5 MG TABLET PO SCH (20:58)
[2020-12-21] MEDS: ONDANSETRON 4 MG/2 ML VIAL IV PRN ×3 (04:25→19:46)
[2020-12-21] MEDS: SODIUM CHLORIDE 0.9% 1,000 ML IV SCH ×3 (05:30→19:43)
[2020-12-21] MEDS: PANTOPRAZOLE 40 MG VIAL IV SCH ×2 (09:11→21:26)
[2020-12-21] MEDS: INSULIN LISPRO 100 UNIT/ML SUBCUT SCH ×4 (09:12→21:25)
[2020-12-21] MEDS: INSULIN GLARGINE 100 UNIT/ML SUBCUT SCH (09:13)
[2020-12-21] MEDS: ENOXAPARIN 40 MG/0.4 ML SYRINGE SUBCUT SCH (09:13)
[2020-12-21] MEDS: amLODIPine 5 MG TABLET PO SCH (09:14)
[2020-12-21] MEDS: LOSARTAN 50 MG TABLET PO SCH (09:14)
[2020-12-21] MEDS: sitaGLIPtin 25 MG TABLET PO SCH (09:14)
[2020-12-21] MEDS: HALOPERIDOL 5 MG TABLET PO SCH ×2 (09:15→21:25)
[2020-12-21] MEDS: BENZTROPINE 1 MG TABLET PO SCH ×2 (09:15→21:25)
[2020-12-21] MEDS: LACTULOSE 20 GM/30 ML UDCUP PO SCH ×3 (10:29→20:32)
[2020-12-21] MEDS ORDERED: INFLUENZA VIRUS VACCINE 0.5 ML SYRINGE IM ONE (10:58)
[2020-12-21 11:17] LABS: Basophils % 0.3 % (0.0-0.8); Eosinophils % 0.2 % (0.00-10.9); Immature Granulocytes % 0.5 %; Immature Granulocytes Absolute 0.05 #; Lymphocytes # 2.4 10*3/uL (1.4-4.0); Mean Corpuscular HGB Conc 30.6 GM/DL (32-36); Mean Corpuscular Volume 81.8 FL (87-102); Mean Platelet Volume 9.1 FL (9.6-12.0); Platelet Count 381 T/CUMM (130-400); White Blood Count 9.5 T/CUMM (4-12)
[2020-12-21 11:38] LABS: Calcium 9.1 MG/DL (8.5-10.1); Osmolality,Calculated 279.7 MOS/KG (273-304); Potassium 3.1 MMOL/L (3.5-5.1)
[2020-12-21] MEDS: VANCOMYCIN INJ 1,250 MG in SODIUM CHLORIDE 0.9% 250 ML IV SCH (13:41)
[2020-12-21] MEDS ORDERED: POTASSIUM CHLORIDE 20 MEQ TABLET PO ONE (14:12)
[2020-12-21] MEDS: cefTRIAXone 1,000 MG in SODIUM CHLORIDE 0.9% 100 ML IV SCH (15:29)
[2020-12-21] MEDS: METOCLOPRAMIDE 10 MG/2 ML VIAL IV SCH ×2 (15:29→21:49)
[2020-12-21] MEDS: AZITHROMYCIN INJ 500 MG in SODIUM CHLORIDE 0.9% 250 ML IV SCH (16:16)
[2020-12-22] MEDS: SODIUM CHLORIDE 0.9% 1,000 ML IV SCH ×4 (04:27→16:26)
[2020-12-22 04:37] LABS: Basophils % 0.2 % (0.0-0.8); Eosinophils # 0.1 10*3/uL (0.0-0.87); Eosinophils % 0.8 % (0.00-10.9); Hematocrit 29.9 VOL% (35.7-47.0); Hemoglobin 9.3 GM/DL (12.0-16.0); Immature Granulocytes % 0.2 %; Immature Granulocytes Absolute 0.02 #; Lymphocytes # 3.2 10*3/uL (1.4-4.0); Lymphocytes % 38.4 % (21.3-54.2); Mean Corpuscular HGB Conc 31.1 GM/DL (32-36); Mean Corpuscular Volume 81.3 FL (87-102); Mean Platelet Volume 8.8 FL (9.6-12.0); Monocytes % 7.2 % (1.7-12.7); Neutrophils % 53.2 % (38.7-73.9); Platelet Count 318 T/CUMM (130-400); Red Blood Count 3.68 MC/CUMM (3.8-5.5); Red Cell Distribution Width 15.8 % (9.3-17.3); White Blood Count 8.4 T/CUMM (4-12)
[2020-12-22 05:00] LABS: Calcium 8.3 MG/DL (8.5-10.1); Osmolality,Calculated 282.3 MOS/KG (273-304); Potassium 2.9 MMOL/L (3.5-5.1)
[2020-12-22] MEDS: ONDANSETRON 4 MG/2 ML VIAL IV PRN (05:15)
[2020-12-22] MEDS: METOCLOPRAMIDE 10 MG/2 ML VIAL IV SCH ×2 (05:47→16:26)
[2020-12-22] MEDS ORDERED: POTASSIUM CHLORIDE 20 MEQ TABLET PO ONE (08:41)
[2020-12-22] MEDS ORDERED: MAGNESIUM SULF RIDER 2 GM/50 ML PREMIX IV ONE (08:41)
[2020-12-22] MEDS: PANTOPRAZOLE 40 MG VIAL IV SCH (09:40)
[2020-12-22] MEDS: ENOXAPARIN 40 MG/0.4 ML SYRINGE SUBCUT SCH (09:40)
[2020-12-22] MEDS: sitaGLIPtin 25 MG TABLET PO SCH (09:42)
[2020-12-22] MEDS: INSULIN GLARGINE 100 UNIT/ML SUBCUT SCH (09:42)
[2020-12-22] MEDS: LACTULOSE 20 GM/30 ML UDCUP PO SCH ×2 (09:43→16:27)
[2020-12-22] MEDS: amLODIPine 5 MG TABLET PO SCH (09:43)
[2020-12-22] MEDS: HALOPERIDOL 5 MG TABLET PO SCH (09:43)
[2020-12-22] MEDS: LOSARTAN 50 MG TABLET PO SCH (09:43)
[2020-12-22] MEDS: BENZTROPINE 1 MG TABLET PO SCH (09:43)
[2020-12-22] MEDS: INSULIN LISPRO 100 UNIT/ML SUBCUT SCH ×3 (09:48→17:37)
[2020-12-22 11:57] VITALS: BP 163/67
[2020-12-22 12:08] LABS: Potassium 3.5 MMOL/L (3.5-5.1)
[2020-12-22] MEDS ORDERED: MAGNESIUM OXIDE 400 MG TABLET PO ONE (12:12)
[2020-12-22] MEDS: cefTRIAXone 1,000 MG in SODIUM CHLORIDE 0.9% 100 ML IV SCH (16:26)
[2020-12-22] MEDS: AZITHROMYCIN INJ 500 MG in SODIUM CHLORIDE 0.9% 250 ML IV SCH (16:27)
== END 2020-12-22 20:06 | disposition home health service (06) | DRG 372 ==
LOC: EDBD → EDUNIT# → N.ED 20:51 → N.EDINP 20:51 → N.4E 12-19 02:45 → N.2W 12-19 13:33
PROVIDERS: ADMIT Internal Medicine; ATTEND Internal Medicine

== ENCOUNTER 2022-03-16 18:04 | Inpatient (IN) ==
[2022-03-16] MEDS ORDERED: SODIUM CHLORIDE 0.9% 1,000 ML IV STA (18:52)
[2022-03-16 18:59] LABS: Basophils % 0.1 % (0.0-0.8); Eosinophils # 0.1 10*3/uL (0.0-0.87); Eosinophils % 0.4 % (0.00-10.9); Hematocrit 18.7 VOL% (35.7-47.0); Immature Granulocytes % 0.6 %; Immature Granulocytes Absolute 0.09 #; Lymphocytes # 3.5 10*3/uL (1.4-4.0); Mean Corpuscular HGB Conc 30.5 GM/DL (32-36); Mean Corpuscular Volume 76.6 FL (87-102); Mean Platelet Volume 8.6 FL (9.6-12.0); Monocytes # 0.7 10*3/uL (0.11-0.8); Monocytes % 4.7 % (1.7-12.7); Neutrophils % 71.2 % (38.7-73.9); Platelet Count 658 T/CUMM (130-400); Red Blood Count 2.44 MC/CUMM (3.8-5.5); Red Cell Distribution Width 15.7 % (9.3-17.3)
[2022-03-16 19:07] LABS: Hemoglobin 5.7 GM/DL (12.0-16.0)
[2022-03-16 19:12] LABS: Albumin 2.3 G/DL (3.4-5.0); Bilirubin,Total 0.5 MG/DL (0.20-1.00); Calcium 8.8 MG/DL (8.5-10.1); Osmolality,Calculated 276.8 MOS/KG (273-304); Potassium 4.3 MMOL/L (3.5-5.1); Total Protein 8.2 G/DL (6.4-8.2)
[2022-03-16] MEDS ORDERED: DEXTROSE 50% 25 GM/50 ML VIAL IV STA ×2 (19:15)
[2022-03-16] MEDS ORDERED: DEXTROSE 50% 25 GM/50 ML SYRINGE IV ONE (19:15)
[2022-03-16 19:17] LABS: Arterial Base Excess iSTAT 2 MMOL/L (-2.5-2.5); Arterial Bicarbonate iSTAT 25.4 MMOL/L (20-26); Arterial O2 Saturation iSTAT 96 % (95-100); Arterial PCO2 iSTAT 34 MM HG (35-48); Arterial PO2 iSTAT 76 MM HG (80-95); Arterial Total CO2 iSTAT 26 MMO/L (23-27); Arterial pH iSTAT 7.485 (7.35-7.45)
[2022-03-16] MEDS ORDERED: GLUCOSE GEL 15 GM TUBE PO ONE (19:20)
[2022-03-16] MEDS ORDERED: GLUCOSE GEL 15 GM TUBE PO STA (19:21)
[2022-03-16] MEDS ORDERED: VANCOMYCIN INJ 1,000 MG in SODIUM CHLORIDE 0.9% 250 ML IV STA ×2 (19:39→19:42)
[2022-03-16] MEDS ORDERED: PIPERACILLIN/TAZOBACTAM 3,375 MG in SODIUM CHLORIDE 0.9% 100 ML IV STA ×2 (19:39→20:25)
[2022-03-16] MEDS ORDERED: SODIUM CHLORIDE 0.9% 1,000 ML IV PRN (19:50)
[2022-03-16] MEDS ORDERED: ONDANSETRON 4 MG/2 ML VIAL IV PRN (19:55)
[2022-03-16] MEDS: PANTOPRAZOLE 40 MG VIAL IV SCH (21:10)
[2022-03-16 21:14] LABS: Amorphous Crystals,Urine Occasional /HPF (Few); Bacteria,Urine Many /HPF (Few); Squamous Epithelial Cell,Urine Occasional /HPF (0-10)
[2022-03-16 21:15] LABS: Urine Color Yellow (Yellow)
[2022-03-16 21:16] LABS: Bilirubin,Urine Negative (Negative); Blood, Urine Trace mg/dL (Negative); Glucose,Urine (UA) Negative (Negative); Ketones,Urine Negative (Negative); Nitrite,Urine Negative (Negative); Protein,Urine 30 mg/dL (Negative); Urine Appearance Slightly Cloudy (Clear); Urine Specific Gravity 1.015 (1.001-1.035); Urine Urobilinogen 0.2 eU/dL (<2.0); Urine pH 5.5 (4.5-8.0)
[2022-03-16] MEDS: BENZTROPINE 1 MG TABLET PO SCH (23:36)
[2022-03-16] MEDS: HALOPERIDOL 5 MG TABLET PO SCH (23:36)
[2022-03-17] MEDS: INSULIN REGULAR 100 UNIT/ML SUBCUT SCH ×4 (00:27→17:16)
[2022-03-17] MEDS: PIPERACILLIN/TAZOBACTAM 3,375 MG in SODIUM CHLORIDE 0.9% 100 ML IV SCH ×3 (06:07→23:31)
[2022-03-17] MEDS: DEXTROSE 5% NACL 0.45% 1,000 ML IV SCH (06:08)
[2022-03-17 08:10] LABS: Basophils % 0.3 % (0.0-0.8); Eosinophils % 0.3 % (0.00-10.9); Hemoglobin 7.8 GM/DL (12.0-16.0); Immature Granulocytes % 0.5 %; Immature Granulocytes Absolute 0.08 #; Lymphocytes # 2.4 10*3/uL (1.4-4.0); Mean Corpuscular HGB Conc 31.2 GM/DL (32-36); Mean Corpuscular Volume 81.4 FL (87-102); Mean Platelet Volume 8.6 FL (9.6-12.0); Monocytes # 0.6 10*3/uL (0.11-0.8); Monocytes % 3.8 % (1.7-12.7); Neutrophils % 79.1 % (38.7-73.9); Platelet Count 500 T/CUMM (130-400); Red Blood Count 3.07 MC/CUMM (3.8-5.5); Red Cell Distribution Width 16.3 % (9.3-17.3); White Blood Count 15.1 T/CUMM (4-12)
[2022-03-17 08:39] LABS: % Iron Saturation 21.7 % (18-50); Ferritin 72.7 ng/mL (8-252)
[2022-03-17 08:55] LABS: Folate 4.84 NG/ML (5.38-24.0); Vitamin B12 298 PG/ML (211-911)
[2022-03-17 08:59] LABS: Osmolality,Calculated 282.7 MOS/KG (273-304); Thyroid Stimulating Hormone 4.78 uIU/ml (0.358-3.74)
[2022-03-17] MEDS ORDERED: amLODIPine 5 MG TABLET PO SCH (09:00)
[2022-03-17] MEDS ORDERED: PNEUMOCOCCAL VACCINE (23 VALENT) 0.5 ML VIAL IM ONE (09:00)
[2022-03-17] MEDS: BENZTROPINE 1 MG TABLET PO SCH ×2 (09:25→21:45)
[2022-03-17] MEDS: PANTOPRAZOLE 40 MG VIAL IV SCH ×2 (09:25→21:46)
[2022-03-17] MEDS: HALOPERIDOL 5 MG TABLET PO SCH ×2 (09:25→21:45)
[2022-03-17 10:03] LABS: Sedimentation Rate-Westergren 130 MM/HR (0-30)
[2022-03-17 10:10] LABS: Platelet Estimate Normal
[2022-03-17 10:11] LABS: Anisocytosis 1+; Hypochromia 1+; Macrocytosis Slight
[2022-03-17] MEDS ORDERED: ERGOCALCIFEROL 50,000 UNIT CAPSULE PO ONE (10:46)
[2022-03-17] MEDS ORDERED: SODIUM CHLORIDE 0.9% 1,000 ML IV PRN (10:46)
[2022-03-17] MEDS: CYANOCOBALAMIN 1000 MCG/1 ML VIAL IM SCH (12:16)
[2022-03-17] MEDS: FOLIC ACID 1 MG TABLET PO SCH (12:16)
[2022-03-17] MEDS: VANCOMYCIN INJ 1,000 MG in SODIUM CHLORIDE 0.9% 250 ML IV SCH (16:33)
[2022-03-17] MEDS ORDERED: LABETALOL 20 MG/4 ML SYRINGE IV ONE (16:54)
[2022-03-17] MEDS ORDERED: POLYETHYLENE GLYCOL POWDER 255 GM BOTTLE PO ONE (18:00)
[2022-03-17] MEDS ORDERED: DOXAZOSIN 1 MG TABLET PO SCH (21:00)
[2022-03-17] MEDS ORDERED: MAGNESIUM HYDROXIDE SUSP 30 ML UDCUP PO ONE (21:00)
[2022-03-17] MEDS: amLODIPine 5 MG TABLET PO SCH (21:45)
[2022-03-17] MEDS: hydrALAZINE 10 MG TABLET PO SCH (21:45)
[2022-03-17] MEDS: ACETAMINOPHEN 325 MG TABLET PO PRN (23:31)
[2022-03-18] MEDS: INSULIN REGULAR 100 UNIT/ML SUBCUT SCH ×4 (02:04→17:29)
[2022-03-18] MEDS: DEXTROSE 5% NACL 0.45% 1,000 ML IV SCH (02:04)
[2022-03-18 05:30] LABS: Basophils # 0.1 10*3/uL (0.0-0.2); Basophils % 0.4 % (0.0-0.8); Eosinophils # 0.1 10*3/uL (0.0-0.87); Eosinophils % 0.6 % (0.00-10.9); Hemoglobin 8.2 GM/DL (12.0-16.0); Immature Granulocytes % 0.7 %; Lymphocytes # 2.1 10*3/uL (1.4-4.0); Lymphocytes % 15.1 % (21.3-54.2); Mean Corpuscular HGB Conc 31.5 GM/DL (32-36); Mean Corpuscular Volume 79.8 FL (87-102); Mean Platelet Volume 8.4 FL (9.6-12.0); Monocytes # 0.5 10*3/uL (0.11-0.8); Monocytes % 3.8 % (1.7-12.7); Neutrophils % 79.4 % (38.7-73.9); Platelet Count 533 T/CUMM (130-400); Red Blood Count 3.26 MC/CUMM (3.8-5.5); Red Cell Distribution Width 16.6 % (9.3-17.3); White Blood Count 13.6 T/CUMM (4-12)
[2022-03-18 05:59] LABS: Calcium 7.9 MG/DL (8.5-10.1); Osmolality,Calculated 285.4 MOS/KG (273-304); Potassium 4.4 MMOL/L (3.5-5.1)
[2022-03-18 06:00] LABS: Free T4 (Free Thyroxine) 1.38 NG/DL (0.76-1.46)
[2022-03-18] MEDS: PANTOPRAZOLE 40 MG VIAL IV SCH ×2 (08:40→21:34)
[2022-03-18] MEDS: PIPERACILLIN/TAZOBACTAM 3,375 MG in SODIUM CHLORIDE 0.9% 100 ML IV SCH ×2 (08:40→16:12)
[2022-03-18] MEDS: VANCOMYCIN INJ 1,000 MG in SODIUM CHLORIDE 0.9% 250 ML IV SCH (08:41)
[2022-03-18] MEDS ORDERED: LIDOCAINE 2% 5 ML VIAL ONE (11:22)
[2022-03-18] MEDS ORDERED: propofoL 200 MG/20 ML VIAL IV ONE (11:22)
[2022-03-18] MEDS ORDERED: fentaNYL 100 MCG/2 ML VIAL ONE (11:22)
[2022-03-18] MEDS ORDERED: PHENYLEPHRINE 1 MG/10 ML SYRINGE IV ONE (11:45)
[2022-03-18] MEDS ORDERED: SEVOFLURANE 1 UNIT/15 MINUTE INH ONE (11:46)
[2022-03-18] MEDS ORDERED: ONDANSETRON 4 MG/2 ML VIAL ONE (11:46)
[2022-03-18] MEDS: BISACODYL 5 MG TABLET PO SCH ×2 (15:16→16:12)
[2022-03-18] MEDS: BENZTROPINE 1 MG TABLET PO SCH ×2 (15:16→21:33)
[2022-03-18] MEDS: HALOPERIDOL 5 MG TABLET PO SCH ×2 (15:17→21:33)
[2022-03-18] MEDS: FOLIC ACID 1 MG TABLET PO SCH (15:17)
[2022-03-18] MEDS: hydrALAZINE 10 MG TABLET PO SCH (16:56)
[2022-03-18] MEDS: amLODIPine 5 MG TABLET PO SCH (16:57)
[2022-03-18] MEDS ORDERED: POLYETHYLENE GLYCOL POWDER 255 GM BOTTLE PO ONE (18:00)
[2022-03-18] MEDS: hydrALAZINE 25 MG TABLET PO SCH (21:33)
[2022-03-19] MEDS: BISACODYL 5 MG TABLET PO SCH ×3 (00:18→19:13)
[2022-03-19] MEDS: INSULIN REGULAR 100 UNIT/ML SUBCUT SCH ×4 (01:00→19:06)
[2022-03-19] MEDS: PIPERACILLIN/TAZOBACTAM 3,375 MG in SODIUM CHLORIDE 0.9% 100 ML IV SCH ×3 (01:10→18:47)
[2022-03-19] MEDS: VANCOMYCIN INJ 1,000 MG in SODIUM CHLORIDE 0.9% 250 ML IV SCH ×2 (03:02→22:55)
[2022-03-19 05:25] LABS: Basophils % 0.1 % (0.0-0.8); Eosinophils # 0.1 10*3/uL (0.0-0.87); Eosinophils % 0.6 % (0.00-10.9); Hematocrit 24.1 VOL% (35.7-47.0); Hemoglobin 7.5 GM/DL (12.0-16.0); Immature Granulocytes % 0.5 %; Immature Granulocytes Absolute 0.08 #; Lymphocytes # 2.1 10*3/uL (1.4-4.0); Lymphocytes % 13.5 % (21.3-54.2); Mean Corpuscular HGB Conc 31.1 GM/DL (32-36); Mean Corpuscular Volume 82.3 FL (87-102); Mean Platelet Volume 8.4 FL (9.6-12.0); Monocytes # 0.5 10*3/uL (0.11-0.8); Monocytes % 3.2 % (1.7-12.7); Neutrophils % 82.1 % (38.7-73.9); Platelet Count 437 T/CUMM (130-400); Red Blood Count 2.93 MC/CUMM (3.8-5.5); Red Cell Distribution Width 17.7 % (9.3-17.3); White Blood Count 15.4 T/CUMM (4-12)
[2022-03-19 05:53] LABS: Calcium 8.1 MG/DL (8.5-10.1); Osmolality,Calculated 274.8 MOS/KG (273-304); Potassium 4.4 MMOL/L (3.5-5.1)
[2022-03-19] MEDS: DEXTROSE 5% NACL 0.45% 1,000 ML IV SCH (05:56)
[2022-03-19 08:02] LABS: Hemoglobin A1 (Alkaline) 97.9 % (96.5-98.5); Hemoglobin A2 (Alkaline) 2.1 % (1.5-3.5)
[2022-03-19] MEDS ORDERED: SODIUM CHLORIDE 0.9% 1,000 ML IV ONE (09:16)
[2022-03-19] MEDS ORDERED: propofoL 200 MG/20 ML VIAL IV ONE (09:16)
[2022-03-19] MEDS ORDERED: LIDOCAINE 2% 5 ML VIAL ONE (09:16)
[2022-03-19] MEDS: BENZTROPINE 1 MG TABLET PO SCH ×2 (11:10→22:30)
[2022-03-19] MEDS: HALOPERIDOL 5 MG TABLET PO SCH ×2 (11:10→22:30)
[2022-03-19] MEDS: FOLIC ACID 1 MG TABLET PO SCH (11:10)
[2022-03-19] MEDS: PANTOPRAZOLE 40 MG VIAL IV SCH ×2 (11:10→22:35)
[2022-03-19] MEDS: amLODIPine 5 MG TABLET PO SCH (11:10)
[2022-03-19] MEDS: hydrALAZINE 25 MG TABLET PO SCH ×2 (11:10→22:30)
[2022-03-19] MEDS ORDERED: SODIUM CHLORIDE 0.9% 1,000 ML IV PRN (13:21)
[2022-03-19] MEDS ORDERED: POLYETHYLENE GLYCOL 3350/ELECTROLYTES 4,000 ML BOTTLE NG ONE (16:00)
[2022-03-19 18:06] LABS: Bacteria,Urine Occasional /HPF (Few); Bilirubin,Urine Negative (Negative); Blood, Urine Trace mg/dL (Negative); Glucose,Urine (UA) Negative (Negative); Ketones,Urine Negative (Negative); Nitrite,Urine Negative (Negative); Protein,Urine 100 mg/dL (Negative); RBC,Urine 1 /HPF (0-4); Squamous Epithelial Cell,Urine Occasional /HPF (0-10); Urine Appearance Clear (Clear); Urine Color Yellow (Yellow); Urine Specific Gravity 1.015 (1.001-1.035)
[2022-03-19 18:07] LABS: Urine Urobilinogen 0.2 eU/dL (<2.0)
[2022-03-19] MEDS ORDERED: MAGNESIUM HYDROXIDE SUSP 30 ML UDCUP PO ONE (21:00)
[2022-03-19] MEDS: MENTHOL/ZINC OXIDE OINT 71 GM JAR TOP SCH (22:36)
[2022-03-20] MEDS: INSULIN REGULAR 100 UNIT/ML SUBCUT SCH ×4 (00:50→18:38)
[2022-03-20] MEDS: BISACODYL 5 MG TABLET PO SCH (02:45)
[2022-03-20 04:43] LABS: Basophils % 0.2 % (0.0-0.8); Eosinophils # 0.2 10*3/uL (0.0-0.87); Eosinophils % 1.1 % (0.00-10.9); Immature Granulocytes % 0.5 %; Immature Granulocytes Absolute 0.07 #; Lymphocytes # 1.7 10*3/uL (1.4-4.0); Lymphocytes % 12.3 % (21.3-54.2); Mean Corpuscular HGB Conc 32.1 GM/DL (32-36); Mean Corpuscular Volume 83.6 FL (87-102); Mean Platelet Volume 8.8 FL (9.6-12.0); Monocytes # 0.5 10*3/uL (0.11-0.8); Monocytes % 3.5 % (1.7-12.7); Neutrophils % 82.4 % (38.7-73.9); Platelet Count 423 T/CUMM (130-400); Red Blood Count 3.35 MC/CUMM (3.8-5.5); Red Cell Distribution Width 16.9 % (9.3-17.3)
[2022-03-20] MEDS: PIPERACILLIN/TAZOBACTAM 3,375 MG in SODIUM CHLORIDE 0.9% 100 ML IV SCH ×3 (05:02→20:43)
[2022-03-20 05:04] LABS: Calcium 8.5 MG/DL (8.5-10.1); Osmolality,Calculated 273.1 MOS/KG (273-304); Potassium 4.1 MMOL/L (3.5-5.1)
[2022-03-20 05:07] LABS: Calcium 7.9 MG/DL (8.5-10.1); Osmolality,Calculated 276.8 MOS/KG (273-304); Potassium 4.4 MMOL/L (3.5-5.1)
[2022-03-20] MEDS: VANCOMYCIN INJ 1,000 MG in SODIUM CHLORIDE 0.9% 250 ML IV SCH ×2 (08:24→23:30)
[2022-03-20] MEDS ORDERED: propofoL 200 MG/20 ML VIAL IV ONE (09:05)
[2022-03-20] MEDS ORDERED: LIDOCAINE 2% 5 ML VIAL ONE (09:05)
[2022-03-20] MEDS: FOLIC ACID 1 MG TABLET PO SCH (13:30)
[2022-03-20] MEDS: hydrALAZINE 25 MG TABLET PO SCH ×2 (13:30→20:44)
[2022-03-20] MEDS: PANTOPRAZOLE 40 MG VIAL IV SCH ×2 (13:30→20:47)
[2022-03-20] MEDS: BENZTROPINE 1 MG TABLET PO SCH ×2 (13:30→20:44)
[2022-03-20] MEDS: HALOPERIDOL 5 MG TABLET PO SCH ×2 (13:30→20:44)
[2022-03-20] MEDS: amLODIPine 5 MG TABLET PO SCH (13:30)
[2022-03-20] MEDS: MENTHOL/ZINC OXIDE OINT 71 GM JAR TOP SCH ×2 (13:51→20:45)
[2022-03-20 20:16] LABS: Soluble Transf Receptor (sTfR) 3.6 mg/L (1.8 - 4.6)
[2022-03-21] MEDS: INSULIN REGULAR 100 UNIT/ML SUBCUT SCH ×5 (00:45→23:57)
[2022-03-21] MEDS: PIPERACILLIN/TAZOBACTAM 3,375 MG in SODIUM CHLORIDE 0.9% 100 ML IV SCH ×3 (04:56→21:34)
[2022-03-21 05:53] LABS: Basophils % 0.3 % (0.0-0.8); Eosinophils # 0.2 10*3/uL (0.0-0.87); Eosinophils % 1.6 % (0.00-10.9); Hematocrit 28.5 VOL% (35.7-47.0); Immature Granulocytes % 0.4 %; Immature Granulocytes Absolute 0.04 #; Lymphocytes # 1.6 10*3/uL (1.4-4.0); Lymphocytes % 13.9 % (21.3-54.2); Mean Corpuscular HGB Conc 31.6 GM/DL (32-36); Mean Corpuscular Volume 84.6 FL (87-102); Mean Platelet Volume 8.7 FL (9.6-12.0); Monocytes # 0.4 10*3/uL (0.11-0.8); Monocytes % 3.7 % (1.7-12.7); Neutrophils % 80.1 % (38.7-73.9); Platelet Count 409 T/CUMM (130-400); Red Blood Count 3.37 MC/CUMM (3.8-5.5); Red Cell Distribution Width 17.2 % (9.3-17.3); White Blood Count 11.2 T/CUMM (4-12)
[2022-03-21 06:13] LABS: Calcium 8.4 MG/DL (8.5-10.1); Osmolality,Calculated 280.7 MOS/KG (273-304); Potassium 3.8 MMOL/L (3.5-5.1)
[2022-03-21] MEDS: amLODIPine 5 MG TABLET PO SCH (10:10)
[2022-03-21] MEDS: hydrALAZINE 25 MG TABLET PO SCH ×2 (10:10→21:36)
[2022-03-21] MEDS: HALOPERIDOL 5 MG TABLET PO SCH ×2 (10:10→21:36)
[2022-03-21] MEDS: PANTOPRAZOLE 40 MG VIAL IV SCH ×2 (10:11→21:37)
[2022-03-21] MEDS: FOLIC ACID 1 MG TABLET PO SCH (10:11)
[2022-03-21] MEDS: BENZTROPINE 1 MG TABLET PO SCH ×2 (10:11→21:36)
[2022-03-21] MEDS: MENTHOL/ZINC OXIDE OINT 71 GM JAR TOP SCH ×2 (13:58→21:36)
[2022-03-21] MEDS ORDERED: TUBERCULIN SKIN TEST 0.1 ML SYRINGE INTRADERM ONE (15:19)
[2022-03-21] MEDS: ACETAMINOPHEN 325 MG TABLET PO PRN (22:27)
[2022-03-21 23:26] LABS: H pylori Specimen source STOOL; Helicobacter pylori Result Not Detected
[2022-03-22] MEDS: PIPERACILLIN/TAZOBACTAM 3,375 MG in SODIUM CHLORIDE 0.9% 100 ML IV SCH ×3 (03:44→21:27)
[2022-03-22 05:50] LABS: Basophils % 0.3 % (0.0-0.8); Eosinophils # 0.1 10*3/uL (0.0-0.87); Eosinophils % 1.2 % (0.00-10.9); Hematocrit 28.5 VOL% (35.7-47.0); Hemoglobin 8.7 GM/DL (12.0-16.0); Immature Granulocytes % 0.5 %; Immature Granulocytes Absolute 0.06 #; Lymphocytes # 1.4 10*3/uL (1.4-4.0); Lymphocytes % 12.5 % (21.3-54.2); Mean Corpuscular HGB Conc 30.5 GM/DL (32-36); Mean Corpuscular Volume 85.6 FL (87-102); Mean Platelet Volume 8.9 FL (9.6-12.0); Monocytes # 0.5 10*3/uL (0.11-0.8); Neutrophils % 81.5 % (38.7-73.9); Platelet Count 452 T/CUMM (130-400); Red Blood Count 3.33 MC/CUMM (3.8-5.5); Red Cell Distribution Width 17.3 % (9.3-17.3); White Blood Count 11.6 T/CUMM (4-12)
[2022-03-22 06:10] LABS: Calcium 8.2 MG/DL (8.5-10.1); Osmolality,Calculated 284.3 MOS/KG (273-304); Potassium 3.7 MMOL/L (3.5-5.1)
[2022-03-22] MEDS: INSULIN REGULAR 100 UNIT/ML SUBCUT SCH ×3 (06:29→19:00)
[2022-03-22] MEDS: BENZTROPINE 1 MG TABLET PO SCH ×2 (08:44→21:25)
[2022-03-22] MEDS: hydrALAZINE 25 MG TABLET PO SCH ×2 (08:44→21:25)
[2022-03-22] MEDS: PANTOPRAZOLE 40 MG VIAL IV SCH ×2 (08:44→21:26)
[2022-03-22] MEDS: FOLIC ACID 1 MG TABLET PO SCH (08:44)
[2022-03-22] MEDS: HALOPERIDOL 5 MG TABLET PO SCH ×2 (08:44→21:25)
[2022-03-22] MEDS: MENTHOL/ZINC OXIDE OINT 71 GM JAR TOP SCH ×2 (08:44→21:30)
[2022-03-22] MEDS: amLODIPine 5 MG TABLET PO SCH (08:44)
[2022-03-23] MEDS: INSULIN REGULAR 100 UNIT/ML SUBCUT SCH ×4 (00:36→18:38)
[2022-03-23] MEDS: DEXTROSE 5% NACL 0.45% 1,000 ML IV SCH (03:17)
[2022-03-23] MEDS: PIPERACILLIN/TAZOBACTAM 3,375 MG in SODIUM CHLORIDE 0.9% 100 ML IV SCH ×3 (03:19→20:41)
[2022-03-23 05:14] LABS: Basophils % 0.4 % (0.0-0.8); Eosinophils # 0.2 10*3/uL (0.0-0.87); Eosinophils % 1.5 % (0.00-10.9); Hematocrit 29.8 VOL% (35.7-47.0); Immature Granulocytes % 0.4 %; Immature Granulocytes Absolute 0.05 #; Lymphocytes # 1.5 10*3/uL (1.4-4.0); Lymphocytes % 13.3 % (21.3-54.2); Mean Corpuscular HGB Conc 30.2 GM/DL (32-36); Mean Corpuscular Volume 85.1 FL (87-102); Mean Platelet Volume 8.7 FL (9.6-12.0); Monocytes # 0.4 10*3/uL (0.11-0.8); Monocytes % 3.9 % (1.7-12.7); Neutrophils % 80.5 % (38.7-73.9); Platelet Count 423 T/CUMM (130-400); Red Cell Distribution Width 17.4 % (9.3-17.3); White Blood Count 11.4 T/CUMM (4-12)
[2022-03-23 05:33] LABS: Calcium 8.9 MG/DL (8.5-10.1); Osmolality,Calculated 286.4 MOS/KG (273-304); Potassium 3.9 MMOL/L (3.5-5.1)
[2022-03-23] MEDS: PANTOPRAZOLE 40 MG VIAL IV SCH ×2 (09:04→20:40)
[2022-03-23] MEDS: BENZTROPINE 1 MG TABLET PO SCH ×2 (09:04→20:39)
[2022-03-23] MEDS: FOLIC ACID 1 MG TABLET PO SCH (09:04)
[2022-03-23] MEDS: hydrALAZINE 25 MG TABLET PO SCH ×2 (09:04→20:39)
[2022-03-23] MEDS: HALOPERIDOL 5 MG TABLET PO SCH ×3 (09:04→20:43)
[2022-03-23] MEDS: amLODIPine 5 MG TABLET PO SCH (09:04)
[2022-03-23] MEDS: MENTHOL/ZINC OXIDE OINT 71 GM JAR TOP SCH ×2 (09:09→21:30)
[2022-03-24] MEDS: INSULIN REGULAR 100 UNIT/ML SUBCUT SCH ×4 (00:44→17:10)
[2022-03-24] MEDS: PIPERACILLIN/TAZOBACTAM 3,375 MG in SODIUM CHLORIDE 0.9% 100 ML IV SCH ×2 (03:29→11:14)
[2022-03-24 05:27] LABS: Basophils % 0.4 % (0.0-0.8); Eosinophils # 0.1 10*3/uL (0.0-0.87); Eosinophils % 0.7 % (0.00-10.9); Hematocrit 28.8 VOL% (35.7-47.0); Hemoglobin 8.8 GM/DL (12.0-16.0); Immature Granulocytes % 0.6 %; Immature Granulocytes Absolute 0.06 #; Lymphocytes # 1.3 10*3/uL (1.4-4.0); Lymphocytes % 11.7 % (21.3-54.2); Mean Corpuscular HGB Conc 30.6 GM/DL (32-36); Mean Platelet Volume 9.1 FL (9.6-12.0); Monocytes # 0.3 10*3/uL (0.11-0.8); Monocytes % 2.8 % (1.7-12.7); Neutrophils % 83.8 % (38.7-73.9); Platelet Count 445 T/CUMM (130-400); Red Blood Count 3.35 MC/CUMM (3.8-5.5); Red Cell Distribution Width 17.2 % (9.3-17.3); White Blood Count 10.8 T/CUMM (4-12)
[2022-03-24 05:38] LABS: Calcium 8.6 MG/DL (8.5-10.1); Osmolality,Calculated 289.4 MOS/KG (273-304)
[2022-03-24] MEDS: DEXTROSE 5% NACL 0.45% 1,000 ML IV SCH ×3 (07:43→15:38)
[2022-03-24] MEDS: FOLIC ACID 1 MG TABLET PO SCH (08:53)
[2022-03-24] MEDS: hydrALAZINE 25 MG TABLET PO SCH ×2 (08:53→20:42)
[2022-03-24] MEDS: BENZTROPINE 1 MG TABLET PO SCH ×2 (08:53→20:42)
[2022-03-24] MEDS: HALOPERIDOL 5 MG TABLET PO SCH ×2 (08:53→20:42)
[2022-03-24] MEDS: amLODIPine 5 MG TABLET PO SCH (08:53)
[2022-03-24] MEDS: CYANOCOBALAMIN 1000 MCG/1 ML VIAL IM SCH (08:54)
[2022-03-24] MEDS: PANTOPRAZOLE 40 MG VIAL IV SCH ×2 (08:54→20:42)
[2022-03-24] MEDS: MENTHOL/ZINC OXIDE OINT 71 GM JAR TOP SCH ×2 (08:54→22:12)
[2022-03-24] MEDS: MEROPENEM 500 MG in SODIUM CHLORIDE 0.9% 100 ML IV SCH (17:14)
[2022-03-25] MEDS: INSULIN REGULAR 100 UNIT/ML SUBCUT SCH ×4 (01:20→17:12)
[2022-03-25] MEDS: DEXTROSE 5% NACL 0.45% 1,000 ML IV SCH ×2 (03:58→15:23)
[2022-03-25 05:52] LABS: Basophils % 0.3 % (0.0-0.8); Eosinophils # 0.1 10*3/uL (0.0-0.87); Eosinophils % 0.5 % (0.00-10.9); Hematocrit 29.2 VOL% (35.7-47.0); Hemoglobin 8.8 GM/DL (12.0-16.0); Immature Granulocytes % 0.5 %; Immature Granulocytes Absolute 0.05 #; Lymphocytes # 1.2 10*3/uL (1.4-4.0); Lymphocytes % 10.8 % (21.3-54.2); Mean Corpuscular HGB Conc 30.1 GM/DL (32-36); Mean Corpuscular Volume 85.4 FL (87-102); Mean Platelet Volume 9.3 FL (9.6-12.0); Monocytes # 0.4 10*3/uL (0.11-0.8); Monocytes % 3.5 % (1.7-12.7); Neutrophils % 84.4 % (38.7-73.9); Platelet Count 480 T/CUMM (130-400); Red Blood Count 3.42 MC/CUMM (3.8-5.5); Red Cell Distribution Width 17.3 % (9.3-17.3); White Blood Count 11.1 T/CUMM (4-12)
[2022-03-25] MEDS: MEROPENEM 500 MG in SODIUM CHLORIDE 0.9% 100 ML IV SCH ×2 (05:52→17:09)
[2022-03-25 06:07] LABS: Calcium 8.9 MG/DL (8.5-10.1); Osmolality,Calculated 287.7 MOS/KG (273-304); Potassium 3.8 MMOL/L (3.5-5.1)
[2022-03-25] MEDS: amLODIPine 5 MG TABLET PO SCH (08:57)
[2022-03-25] MEDS: BENZTROPINE 1 MG TABLET PO SCH ×2 (08:57→20:58)
[2022-03-25] MEDS: HALOPERIDOL 5 MG TABLET PO SCH ×2 (08:57→20:58)
[2022-03-25] MEDS: hydrALAZINE 25 MG TABLET PO SCH ×2 (08:57→20:49)
[2022-03-25] MEDS: FOLIC ACID 1 MG TABLET PO SCH (08:57)
[2022-03-25] MEDS: PANTOPRAZOLE 40 MG VIAL IV SCH ×2 (08:58→20:50)
[2022-03-25] MEDS: MENTHOL/ZINC OXIDE OINT 71 GM JAR TOP SCH ×2 (08:58→20:49)
[2022-03-25] MEDS: ACETAMINOPHEN 325 MG TABLET PO PRN (17:09)
[2022-03-26] MEDS: INSULIN REGULAR 100 UNIT/ML SUBCUT SCH ×4 (02:25→17:31)
[2022-03-26] MEDS: MEROPENEM 500 MG in SODIUM CHLORIDE 0.9% 100 ML IV SCH ×2 (05:15→18:14)
[2022-03-26 05:40] LABS: Basophils % 0.2 % (0.0-0.8); Eosinophils # 0.2 10*3/uL (0.0-0.87); Eosinophils % 2.1 % (0.00-10.9); Hematocrit 30.4 VOL% (35.7-47.0); Hemoglobin 9.5 GM/DL (12.0-16.0); Immature Granulocytes % 0.5 %; Immature Granulocytes Absolute 0.05 #; Lymphocytes # 1.1 10*3/uL (1.4-4.0); Mean Corpuscular HGB Conc 31.3 GM/DL (32-36); Mean Corpuscular Volume 85.2 FL (87-102); Mean Platelet Volume 9.2 FL (9.6-12.0); Monocytes # 0.5 10*3/uL (0.11-0.8); Monocytes % 5.1 % (1.7-12.7); Neutrophils % 80.1 % (38.7-73.9); Platelet Count 485 T/CUMM (130-400); Red Blood Count 3.57 MC/CUMM (3.8-5.5); Red Cell Distribution Width 17.2 % (9.3-17.3); White Blood Count 9.4 T/CUMM (4-12)
[2022-03-26 05:58] LABS: Calcium 8.8 MG/DL (8.5-10.1); Osmolality,Calculated 290.4 MOS/KG (273-304); Potassium 3.9 MMOL/L (3.5-5.1)
[2022-03-26 07:57] LABS: INR 1.1; PT Patient Result 11.7 SECS (10.1-12.1)
[2022-03-26] MEDS: FOLIC ACID 1 MG TABLET PO SCH (09:34)
[2022-03-26] MEDS: amLODIPine 5 MG TABLET PO SCH (09:34)
[2022-03-26] MEDS: BENZTROPINE 1 MG TABLET PO SCH ×2 (09:34→21:30)
[2022-03-26] MEDS: hydrALAZINE 25 MG TABLET PO SCH ×2 (09:34→22:19)
[2022-03-26] MEDS: HALOPERIDOL 5 MG TABLET PO SCH ×2 (09:35→21:30)
[2022-03-26] MEDS: MENTHOL/ZINC OXIDE OINT 71 GM JAR TOP SCH ×2 (09:35→22:19)
[2022-03-26] MEDS: PANTOPRAZOLE 40 MG VIAL IV SCH ×2 (09:39→22:20)
[2022-03-26] MEDS ORDERED: DIAZEPAM 5 MG TABLET PO ONE (09:42)
[2022-03-26] MEDS ORDERED: fentaNYL 100 MCG/2 ML VIAL IV ONE (13:00)
[2022-03-26] MEDS ORDERED: MIDAZOLAM 2 MG/2 ML VIAL IV ONE (13:00)
[2022-03-26] MEDS ORDERED: HEPARIN/NACL 0.9% 2 UNITS/ML 4,000 UNIT/2,000 ML BAG IV ONE (13:06)
[2022-03-26 14:59] LABS: Hyaline Casts,Urine 1 /LPF (0-3); Mucus,Urine Occasional /LPF (Occasional); RBC,Urine 2 /HPF (0-4); Squamous Epithelial Cell,Urine Occasional /HPF (0-10); Urine Appearance Clear (Clear); Urine Color Yellow (Yellow)
[2022-03-26 15:00] LABS: Bilirubin,Urine Negative (Negative); Blood, Urine Negative (Negative); Glucose,Urine (UA) Negative (Negative); Ketones,Urine Negative (Negative); Nitrite,Urine Negative (Negative); Protein,Urine Negative (Negative); Urine Urobilinogen 0.2 eU/dL (<2.0); Urine pH 5.5 (4.5-8.0)
[2022-03-26] MEDS ORDERED: HEPARIN 5,000 UNIT/1 ML VIAL ONE (15:00)
[2022-03-26] MEDS ORDERED: HEPARIN 5,000 UNIT/1 ML VIAL IV ONE (15:13)
[2022-03-26] MEDS: DEXTROSE 5% NACL 0.45% 1,000 ML IV SCH (17:30)
[2022-03-27] MEDS: INSULIN REGULAR 100 UNIT/ML SUBCUT SCH ×4 (01:30→18:35)
[2022-03-27] MEDS: MEROPENEM 500 MG in SODIUM CHLORIDE 0.9% 100 ML IV SCH ×2 (05:40→17:56)
[2022-03-27 05:43] LABS: Basophils % 0.3 % (0.0-0.8); Eosinophils # 0.2 10*3/uL (0.0-0.87); Eosinophils % 1.7 % (0.00-10.9); Hematocrit 32.1 VOL% (35.7-47.0); Hemoglobin 9.9 GM/DL (12.0-16.0); Immature Granulocytes % 0.6 %; Immature Granulocytes Absolute 0.06 #; Lymphocytes # 0.9 10*3/uL (1.4-4.0); Lymphocytes % 9.4 % (21.3-54.2); Mean Corpuscular HGB Conc 30.8 GM/DL (32-36); Mean Corpuscular Volume 85.6 FL (87-102); Monocytes # 0.4 10*3/uL (0.11-0.8); Monocytes % 4.3 % (1.7-12.7); Neutrophils % 83.7 % (38.7-73.9); Platelet Count 501 T/CUMM (130-400); Red Blood Count 3.75 MC/CUMM (3.8-5.5); Red Cell Distribution Width 17.1 % (9.3-17.3); White Blood Count 9.6 T/CUMM (4-12)
[2022-03-27 06:06] LABS: Calcium 9.1 MG/DL (8.5-10.1); Osmolality,Calculated 292.1 MOS/KG (273-304); Potassium 3.8 MMOL/L (3.5-5.1)
[2022-03-27] MEDS: hydrALAZINE 25 MG TABLET PO SCH ×2 (08:45→20:47)
[2022-03-27] MEDS: amLODIPine 5 MG TABLET PO SCH (08:45)
[2022-03-27] MEDS ORDERED: propofoL 200 MG/20 ML VIAL IV ONE (09:14)
[2022-03-27] MEDS ORDERED: fentaNYL 100 MCG/2 ML VIAL ONE (09:14)
[2022-03-27] MEDS ORDERED: LIDOCAINE 2% 5 ML VIAL ONE (09:14)
[2022-03-27] MEDS ORDERED: MIDAZOLAM 2 MG/2 ML VIAL ONE (09:14)
[2022-03-27] MEDS ORDERED: SEVOFLURANE 1 UNIT/15 MINUTE INH ONE (09:14)
[2022-03-27] MEDS: BENZTROPINE 1 MG TABLET PO SCH ×2 (09:44→20:47)
[2022-03-27] MEDS: FOLIC ACID 1 MG TABLET PO SCH (09:45)
[2022-03-27] MEDS: HALOPERIDOL 5 MG TABLET PO SCH ×2 (09:45→20:47)
[2022-03-27] MEDS: PANTOPRAZOLE 40 MG VIAL IV SCH ×2 (09:45→20:48)
[2022-03-27] MEDS ORDERED: SODIUM CHLORIDE 0.9% 250 ML IV SCH (10:00)
[2022-03-27] MEDS ORDERED: ONDANSETRON 4 MG/2 ML VIAL ONE (10:26)
[2022-03-27] MEDS: MENTHOL/ZINC OXIDE OINT 71 GM JAR TOP SCH ×2 (10:29→20:48)
[2022-03-27] MEDS: DEXTROSE 5% NACL 0.45% 1,000 ML IV SCH (16:40)
[2022-03-27] MEDS ORDERED: GLUCAGON 1 MG VIAL IM PRN (18:17)
[2022-03-27] MEDS ORDERED: DEXTROSE 10% 250 ML BAG IV PRN (18:19)
[2022-03-27] MEDS: ACETAMINOPHEN 325 MG TABLET PO PRN (18:36)
[2022-03-28] MEDS: INSULIN REGULAR 100 UNIT/ML SUBCUT SCH ×5 (00:09→23:55)
[2022-03-28] MEDS: MEROPENEM 500 MG in SODIUM CHLORIDE 0.9% 100 ML IV SCH ×2 (05:30→18:11)
[2022-03-28 05:33] LABS: Basophils % 0.3 % (0.0-0.8); Eosinophils # 0.2 10*3/uL (0.0-0.87); Eosinophils % 1.5 % (0.00-10.9); Hematocrit 30.4 VOL% (35.7-47.0); Hemoglobin 9.2 GM/DL (12.0-16.0); Immature Granulocytes % 0.6 %; Immature Granulocytes Absolute 0.06 #; Lymphocytes # 0.7 10*3/uL (1.4-4.0); Mean Corpuscular HGB Conc 30.3 GM/DL (32-36); Mean Corpuscular Volume 86.9 FL (87-102); Mean Platelet Volume 9.5 FL (9.6-12.0); Monocytes # 0.5 10*3/uL (0.11-0.8); Monocytes % 4.6 % (1.7-12.7); Platelet Count 525 T/CUMM (130-400); Red Cell Distribution Width 17.1 % (9.3-17.3); White Blood Count 10.1 T/CUMM (4-12)
[2022-03-28 06:20] LABS: Osmolality,Calculated 289.3 MOS/KG (273-304); Potassium 3.8 MMOL/L (3.5-5.1)
[2022-03-28] MEDS: FOLIC ACID 1 MG TABLET PO SCH (08:40)
[2022-03-28] MEDS: amLODIPine 5 MG TABLET PO SCH (08:40)
[2022-03-28] MEDS: BENZTROPINE 1 MG TABLET PO SCH ×2 (08:40→20:36)
[2022-03-28] MEDS: HALOPERIDOL 5 MG TABLET PO SCH ×2 (08:40→20:36)
[2022-03-28] MEDS: CLOPIDOGREL 75 MG TABLET PO SCH (08:40)
[2022-03-28] MEDS: hydrALAZINE 25 MG TABLET PO SCH ×3 (08:40→20:37)
[2022-03-28] MEDS: PANTOPRAZOLE 40 MG VIAL IV SCH ×2 (08:41→20:36)
[2022-03-28] MEDS: MENTHOL/ZINC OXIDE OINT 71 GM JAR TOP SCH ×2 (12:01→20:37)
[2022-03-28] MEDS: DEXTROSE 5% NACL 0.45% 1,000 ML IV SCH (19:57)
[2022-03-29] MEDS: MEROPENEM 500 MG in SODIUM CHLORIDE 0.9% 100 ML IV SCH (05:14)
[2022-03-29] MEDS: INSULIN REGULAR 100 UNIT/ML SUBCUT SCH ×2 (05:23→12:12)
[2022-03-29] MEDS: amLODIPine 5 MG TABLET PO SCH (08:53)
[2022-03-29] MEDS: HALOPERIDOL 5 MG TABLET PO SCH (08:53)
[2022-03-29] MEDS: CLOPIDOGREL 75 MG TABLET PO SCH (08:53)
[2022-03-29] MEDS: hydrALAZINE 25 MG TABLET PO SCH (08:53)
[2022-03-29] MEDS: PANTOPRAZOLE 40 MG VIAL IV SCH (08:53)
[2022-03-29] MEDS: BENZTROPINE 1 MG TABLET PO SCH (08:53)
[2022-03-29] MEDS: FOLIC ACID 1 MG TABLET PO SCH (08:53)
[2022-03-29] MEDS: MENTHOL/ZINC OXIDE OINT 71 GM JAR TOP SCH (08:54)
[2022-03-29 12:08] VITALS: BP 148/62
[2022-03-29] MEDS: ACETAMINOPHEN 325 MG TABLET PO PRN (12:12)
== END 2022-03-29 15:15 | DRG 239 ==
LOC: N.ED 18:04 → N.EDINP 19:48 → SUATTDRO 19:48 → N.EDINP 21:12 → N.3E 21:41
PROVIDERS: ADMIT Hospitalist; ATTEND Hospitalist